=== PATIENT | female | born 1950 | race Caucasian/White ===

== ENCOUNTER 2016-06-29 00:26 | Inpatient (IN) | payer OTHER ==
[~2016-06-29] VITALS: Ht 154.9 cm; Wt 61.1 kg
[2016-06-29] VITALS (15 sets, daily range): BP systolic 105–119; BP diastolic 62–70; PULSE 70–110; TEMP 36.6–37.4; O2SAT 91–97; Ht 154.9 cm; Wt 61.1 kg
[~2016-06-29 00:26] MED LIST: ADVIN25050 INH; ALBU1AER9 INH; ALBU1NEB10 INH; CALC-51 PO; FERR325T51 PO; LEVO100T7 PO; LISI5TAB3 PO; PRED10TA PO; PRLSR20 PO; SERT-234 PO; SIMV20TA2 PO; SNG10 PO; SUMA100T16 PO; THEO1TAB14 PO; TIOTCAP INH; ZOLP5TAB6 PO
[2016-06-29] MEDS ORDERED: METHYLPREDNISOLONE 125 MG VIAL IV STA (00:33)
[2016-06-29] MEDS ORDERED: ALBUT/IPRATROP 3MG/0.5MG NEB 3 ML VIAL INH ONE (00:45)
--- NOTE | 2016-06-29 00:45 | EMERGENCY ROOM VISIT NOTE ---
History Report prepared by Juanita: Kira Sandoval Under the Supervision of: Dr. Erum Angeles D.O. First contact with patient: 00:27 Chief Complaint: RESPIRATORY PROBLEMS Stated Complaint: BREATHING DIFFICULTY History of Present Illness The patient is a 65 year old female who presents to the Emergency Room with complaints of worsening SOB starting 1 day [employer]. According to nursing staff the patient woke up yesterday with general weakness and SOB which worsened throughout the day after attempts of using breathing treatments at home. The patient then called from EMS. The patient states that the breathing treatments in the ambulance have helped her symptoms. The nursing staff state that the patient has COPD, asthma and is a daily smoker. Source of History: patient, nursing staff Onset: 1 day COTTON [employer]ER Position: chest Timing: worsening Modifying Factors (Relieving): other (breathing treatment in ambulance) Associated Symptoms: + weakness Review of Systems See HPI for pertinent positives & negatives. A total of 10 systems reviewed and were otherwise negative. Past Medical & Surgical Medical Problems: (1) Degenerative disc disease, lumbar (2) HTN (hypertension) (3) Respiratory failure, acute (4) Right leg pain Surgical Problems: (1) Gastric bypass status for obesity Family History Diabetes mellitus Heart disease Hypertension Social History Smoking Status: Current Every Day Smoker Alcohol Use: none Drug Use: none Marital Status: single Occupation Status: employed Current/Historical Medications Scheduled Albuterol (Proair Hfa), 2 PUFFS INH QID PRN Albuterol Soln (Ventolin Soln), 1 AMP INH Q4HR PRN Calcium Citrate-Vitamin D (Calcium Citrate + D3 200-250 mg-Unit), 1 TAB PO BID Cholecalciferol (Vitamin D3), 1,000 UNITS PO DAILY Ferrous Sulfate (Iron Supplement), 325 MG PO BID Fluticasone Prop/Salmeterol (Advair Diskus 250/50 Mcg *), 1 PUFF INH BID Levofloxacin (Levaquin), 500 MG PO DAILY/UD/PRN Levothyroxine Sodium (Levothyroxine Sodium), 125 MCG PO DAILY Lisinopril (Zestril), 5 MG PO QAM Montelukast (Singulair *), 10 MG PO HS Multivitamin (Multivitamin), 1 TAB PO DAILY Omeprazole (Prilosec), 20 MG PO BIDM Sertraline (Zoloft), 150 MG PO QAM Simvastatin (Zocor), 20 MG PO QPM Theophylline Ext Rel (Adarsh-Dur Ext Rel), 300 MG PO BID Umeclidinium Roberta (Incruse Ellipta), 1 PUFF INH DAILY Scheduled PRN Cyclobenzaprine Hcl (Flexeril), 5 MG PO TID PRN for SPASMS Polyethylene Glycol 3350 (Miralax), 17 GM PO DAILY PRN for Constipation Tramadol (Ultram), 50 MG PO Q6H PRN for Pain Zolpidem Tartrate (Zolpidem Tartrate), 10 MG PO HS PRN for Sleep Allergies Coded Allergies: Cephalexin (Verified Allergy, Intermediate, ITCHY, 02/26/16) Physical Exam Vital Signs Date Time Temp Pulse Resp B/P Pulse Ox O2 Delivery O2 Flow Rate FiO2 06/29/16 03:00 112 19 105/63 92 Nasal Cannula 4.0 06/29/16 01:53 37.6 06/29/16 01:51 137 91 Room Air 06/29/16 01:28 117/64 06/29/16 01:26 131 19 94 Nebulizer 06/29/16 01:18 101/55 06/29/16 00:56 115 18 96 Nebulizer 06/29/16 00:49 Mask 8.0 06/29/16 00:49 36.6 110 22 124/74 97 Mask 8.0 06/29/16 00:49 Mask 8.0 06/29/16 00:37 116 06/29/16 00:31 124/74 Physical Exam HEENT: Head - normocephalic and atraumatic Pupils are equal, round, and reactive to light. Extraocular eye muscles are intact, and sclera are anicteric. Nose - moist nasal mucosa without discharge. Mouth - moist buccal mucosa. Oropharynx is nonerythematous and there is no tonsillar exudate or edema noted. Neck: Supple; no JVD, nuchal rigidity, cervical lymphadenopathy. Heart: Tachycardic rate and regular rhythm. There is a normal S1 and S2 with no murmurs, clicks, or gallops appreciated. Lungs: Inspiratory and expiratory wheezing with rhonchi at both bases. Abdomen: Soft, completely nontender, nondistended, with good bowel sounds. There are no palpable pulsatile masses or hepatosplenomegaly. There is no guarding, rigidity, or rebound noted. Extremities: No evidence of cyanosis, clubbing, or edema. There are easily palpable peripheral pulses. Skin: Hot and dry with good turgor and no rashes. Medical Decision & Procedures ER Provider Diagnostic Interpretation: X-ray results as stated below per interpretation by me: CHEST X-RAY: Right middle lobe pneumonia. Cardiomegaly. Laboratory Results 06/29/16 00:40 Red Blood Count 4.26, Mean Corpuscular Volume 81.5, Mean Corpuscular Hemoglobin 25.4, Mean Corpuscular Hemoglobin Concent 31.1, Mean Platelet Volume 10.1, Neutrophils (%) (Auto) 80.6, Lymphocytes (%) (Auto) 11.1, Monocytes (%) (Auto) 7.9, Eosinophils (%) (Auto) 0.0, Basophils (%) (Auto) 0.1, Neutrophils # (Auto) 9.59, Lymphocytes # (Auto) 1.32, Monocytes # (Auto) 0.94, Eosinophils # (Auto) 0.00, Basophils # (Auto) 0.01 06/29/16 00:40 Test 06/29/16 00:40 06/29/16 00:42 06/29/16 01:00 06/29/16 02:32 White Blood Count 11.90 K/uL (4.8-10.8) Red Blood Count 4.26 M/uL (4.2-5.4) Hemoglobin 10.8 g/dL (12.0-16.0) Hematocrit 34.7 % (37-47) Mean Corpuscular Volume 81.5 fL (80-100) Mean Corpuscular Hemoglobin 25.4 pg (25-34) Mean Corpuscular Hemoglobin Concent 31.1 g/dl (32-36) Platelet Count 180 K/uL (130-400) Mean Platelet Volume 10.1 fL (7.4-10.4) Neutrophils (%) (Auto) 80.6 % Lymphocytes (%) (Auto) 11.1 % Monocytes (%) (Auto) 7.9 % Eosinophils (%) (Auto) 0.0 % Basophils (%) (Auto) 0.1 % Neutrophils # (Auto) 9.59 K/uL (1.4-6.5) Lymphocytes # (Auto) 1.32 K/uL (1.2-3.4) Monocytes # (Auto) 0.94 K/uL (0.11-0.59) Eosinophils # (Auto) 0.00 K/uL (0-0.5) Basophils # (Auto) 0.01 K/uL (0-0.2) RDW Standard Deviation 52.9 fL (36.4-46.3) RDW Coefficient of Variation 17.7 % (11.5-14.5) Immature Granulocyte % (Auto) 0.3 % Immature Granulocyte # (Auto) 0.04 K/uL (0.00-0.02) Prothrombin Time 9.9 SECONDS (9.0-12.0) Prothromb Time International Ratio 0.9 (0.9-1.1) Activated Partial Thromboplast Time 30.7 SECONDS (21.0-31.0) Partial Thromboplastin Ratio 1.2 Anion Gap 11.0 mmol/L (3-11) Est Creatinine Clear Calc Drug Dose 76.1 ml/min Estimated GFR () 108.7 Estimated GFR (Non- 93.8 BUN/Creatinine Ratio 11.6 (10-20) Calcium Level 8.4 mg/dl (8.5-10.1) Magnesium Level 1.9 mg/dl (1.8-2.4) Total Bilirubin 0.2 mg/dl (0.2-1) Aspartate Amino Transf (AST/SGOT) 17 U/L (15-37) Alanine Aminotransferase (ALT/SGPT) 13 U/L (12-78) Alkaline Phosphatase 75 U/L (45-117) Total Protein 7.1 gm/dl (6.4-8.2) Albumin 3.3 gm/dl (3.4-5.0) Globulin 3.8 gm/dl (2.5-4.0) Albumin/Globulin Ratio 0.9 (0.9-2) Chemistry Specimen Hemolysis Theophylline Level 10 mcg/ml (10-20) Bedside Lactic Acid Venous 1.85 mmol/L (0.90-1.70) Influenza Type A Antigen Neg for Influ A (NEG) Influenza Type B Antigen Neg for Influ B (NEG) Arterial Blood pH 7.49 (7.35-7.45) Arterial Blood Partial Pressure CO2 33 mmHg (35-46) Arterial Blood Partial Pressure O2 72 mm/Hg (80-95) Arterial Blood HCO3 24 mmol/L (19-24) Arterial Blood Oxygen Saturation 93.8 % (90-95) Arterial Blood Base Excess 1.2 mEq/L (-9-1.8) Arterial Blood Gas Delivery 4L Mateus Test POS (POS) Lactic Acid Level 1.4 mmol/L (0.4-2.0) Laboratory results per my review. Medications Administered Medications (Trade) Dose Ordered Sig/Kaycee Route Start Time Stop Time Status Last Admin Dose Admin Methylprednisolone Sodium Succinate (Solu-Medrol IV) 125 mg NOW STAT IV 06/29/16 00:33 06/29/16 00:36 DC 06/29/16 00:33 125 MG Albuterol/ Ipratropium (Duoneb) 12 ml ONE ONCE INH 06/29/16 00:45 06/29/16 00:46 DC 06/29/16 00:46 12 ML Piperacillin Sod/ Tazobactam Sod (Zosyn Iv) 4.5 gm NOW STAT IV 06/29/16 01:48 06/29/16 01:50 DC 06/29/16 01:48 4.5 GM Levofloxacin 750 mg 750 mg NOW ONCE IV 06/29/16 02:00 06/29/16 02:01 DC 06/29/16 02:00 750 MG Lactated Ringer's (Lr 1000ml) 1,000 ml @ 500 mls/hr Q2H ONCE IV 06/29/16 02:15 06/29/16 04:14 DC 06/29/16 04:04 500 MLS/HR Procedure Medications Administered: Methylprednisolone Sodium succinate Albuterol/Ipratropium Piperacillin Sod/Tazobactam Sod Levofloxacin ECG Indication: SOB/dyspnea Rate (beats per minute): 115 Rhythm: sinus tachycardia Findings: PAC, no acute ischemic change, no ectopy ED Course 0027: Past medical records reviewed. The patient was evaluated in room A2. A complete history and physical exam was performed. A twelve-lead EKG was obtained. Laboratory studies were drawn as above. 0033: Ordered Solu-Medrol IV 125 mg IV. The patient had chest x-ray as described above. 0045: Ordered Duoneb 12 ml INH. 0148: Ordered Zosyn IV 4.5 gm IV. 0151: I reevaluated the patient and she was on 4 L of O2 by nasal canula and feeling better. 0200: Ordered Levofloxacin 750 mg IV. 0210: I discussed the case with Dr. Micheal Martin. He agreed to evaluate the patient for further management and care. Medical Decision The patient is a 65 year old female who presents to the ED with SOB. Differential diagnosis includes pneumonia, COPD exacerbation, cardiac ischemia, bronchitis, and sepsis. Labs: White count 11.9 hemoglobin 10.8 Hematocrit 29.8 Platelet count 180 Normal renal function Glucose 113 Lactic Acid 1.8 LFTs are normal Influenza negative. This is a 65-year-old female who had progressively worsening shortness of breath throughout the day. The patient has been using breathing treatments at home without any relief. She seems to be having an exacerbation of her asthma. Chest x-ray shows evidence of a large right middle lobe pneumonia. A septic workup was performed. The patient was started on IV antibiotics. She is feeling better at this time. Consults Time Called: 0150 Consulting Physician: Dr. Micheal Martin. Returned Call: 0210 I discussed the case with Dr. Micheal Martin. He agreed to evaluate the patient for further management and care. Impression Primary Impression: Right middle lobe pneumonia Additional Impression: COPD exacerbation Scribe Attestation The scribe's documentation has been prepared under my direction and personally reviewed by me in its entirety. I confirm that the note above accurately reflects all work, treatment, procedures, and medical decision making performed by me. Departure Information Dispostion Being Evaluated By Hospitalist Destin Diaz M.D. (PCP)
[2016-06-29 01:05] LABS: BASO % 0.1 %; BASO ABS # 0.01 K/uL (0-0.2); COMPLETE YES; HEMATOCRIT 34.7 % (37-47); IG% 0.3 %; LYMPH % 11.1 %; LYMPH ABS # 1.32 K/uL (1.2-3.4); MEAN CELL VOLUME 81.5 fL (80-100); MEAN CORPUSCULAR HEMOGLOBIN 25.4 pg (25-34); MEAN CORPUSCULAR HGB CONC 31.1 g/dl (32-36); MEAN PLATELET VOLUME 10.1 fL (7.4-10.4); MONO % 7.9 %; NEUT % 80.6 %; PLATELET COUNT 180 K/uL (130-400); RED BLOOD COUNT 4.26 M/uL (4.2-5.4)
[2016-06-29 01:16] LABS: INR 0.9 (0.9-1.1); PARTIAL THROMBOPLASTIN RATIO 1.2; PROTHROMBIN TIME (PATIENT) 9.9 SECONDS (9.0-12.0)
[2016-06-29 01:32] LABS: ALB/GLOB RATIO 0.9 (0.9-2); BUN/CREATININE RATIO 11.6 (10-20); CALCIUM 8.4 mg/dl (8.5-10.1); CREATININE 0.65 mg/dl (0.60-1.20); POTASSIUM 3.8 mmol/L (3.5-5.1)
[2016-06-29] MEDS ORDERED: PIPERACILLIN/TAZOBACTAM 4.5 GM/100ML D5W IV STA (01:48)
[2016-06-29] MEDS ORDERED: LEVAQUIN 750MG / 150ML D5W IV ONE (02:00)
[2016-06-29] MEDS ORDERED: UMEC1INH INH (02:01)
[2016-06-29] MEDS ORDERED: LEVO125T4 PO (02:09)
[2016-06-29] MEDS ORDERED: CYCL5TAB PO (02:11)
[2016-06-29] MEDS ORDERED: TRAM-10 PO (02:14)
[2016-06-29] MEDS ORDERED: ACETAMINOPHEN 325 MG TAB PO PRN (02:15)
[2016-06-29] MEDS ORDERED: LACTATED RINGER'S 1000ML 1,000 ML IV ONE (02:15)
[2016-06-29] MEDS ORDERED: VANCOMYCIN INJ 0 MG in SODIUM CHLORIDE 0.9% 250ML 250 ML IV STA (02:18)
[2016-06-29] MEDS ORDERED: LEVO1TAB33 PO (02:19)
[2016-06-29] MEDS ORDERED: CHOL1000 PO (02:22)
[2016-06-29] MEDS ORDERED: MULT-506 PO (02:23)
[2016-06-29] MEDS ORDERED: POLY335019 PO (02:24)
[2016-06-29] MEDS ORDERED: CALC-494 PO (02:27)
[2016-06-29 02:47] LABS: ALLEN TEST POS (POS); ARTERIAL BLD GAS O2 SATURATION 93.8 % (90-95); ARTERIAL BLOOD GAS BASE EXCESS 1.2 mEq/L (-9-1.8); ARTERIAL BLOOD GAS HCO3 24 mmol/L (19-24); ARTERIAL BLOOD GAS PO2 72 mm/Hg (80-95); ARTERIAL BLOOD GAS pH 7.49 (7.35-7.45); O2 ADMINISTRATION 4L
[2016-06-29 02:48] LABS: MAGNESIUM 1.9 mg/dl (1.8-2.4)
[2016-06-29] MEDS ORDERED: GUAIFENESIN 600 MG TABCR PO ONE (03:29)
[2016-06-29] MEDS ORDERED: LEVALBUTEROL/IPRATROPIUM NEB INH STA (03:29)
[2016-06-29] MEDS ORDERED: POTASSIUM CHLORIDE 10 MEQ TABCR PO STA (03:29)
[2016-06-29] MEDS ORDERED: POLYETHYLENE (MIRALAX) 17 GM PACK PO PRN (03:30)
[2016-06-29] MEDS ORDERED: NITROGLYCERIN 0.4 MG SL PER TAB CHARGE SL PRN (03:30)
[2016-06-29] MEDS ORDERED: ONDANSETRON INJ 2 MG/ML 2 ML VIAL IV PRN (03:30)
[2016-06-29] MEDS ORDERED: LEVALBUTEROL/IPRATROPIUM NEB INH PRN (03:30)
[2016-06-29] MEDS ORDERED: HYDROmorphone INJ 1 MG/ML SYR IV PRN (03:30)
[2016-06-29] MEDS ORDERED: ACETAMINOPHEN 325 MG TAB PO STA (03:38)
[2016-06-29] MEDS ORDERED: IPRATROPIUM BROMIDE NEB SOLN 0.02% 2.5 ML VIAL INH STA (03:40)
[2016-06-29] MEDS ORDERED: LEVALBUTEROL 1.25MG/0.5ML NEB INH STA (03:40)
[2016-06-29] MEDS ORDERED: LEVALBUTEROL 1.25MG/0.5ML NEB INH PRN (03:45)
[2016-06-29] MEDS ORDERED: IPRATROPIUM BROMIDE NEB SOLN 0.02% 2.5 ML VIAL INH PRN (03:45)
[2016-06-29] MEDS ORDERED: MAGNESIUM SULFATE 1GM / D5W 1 GM in PREMIXED IN D5W 100 ML IV STA (04:09)
[2016-06-29] MEDS ORDERED: VANCOMYCIN CONSULT ACTIVE PRN (04:30)
[2016-06-29] MEDS ORDERED: VANCOMYCIN INJ 1,650 MG in SODIUM CHLORIDE 0.9% 500ML 500 ML IV SCH (05:00)
--- NOTE | 2016-06-29 05:48 | HISTORY & PHYSICAL EXAMINATION ---
DATE OF ADMISSION: 06/29/2016 PRIMARY CARE PHYSICIAN: Dr. Villasenor. CHIEF COMPLAINT: Cough, shortness of breath. History obtained from patient and records. HISTORY OF PRESENT ILLNESS: Medical history is significant for chronic respiratory failure secondary to COPD , ongoing tobacco abuse, sleep apnea as per records, history of gastric bypass, pulmonary nodules, hypertension, hyperlipidemia, hypothyroidism, history of MRSA as per records. chronic anemia (baseline hemoglobin of 10). Recent confinement June 2012 for COPD exacerbation. One-day history of productive cough symptoms, unable to expectorate, admits to some sick contacts. Denies aspiration. No cp. Patient had a fever as well. At the Emergency Room, the patient received Levaquin, Zosyn, Solu-Medrol for sepsis and COPD exacerbation. MEDICAL HISTORY: As above. Pneumococcal vaccine in 2005. SURGERIES: Gastric bypass, hernia surgery, tubal ligation, ovarian cyst removal. HOME MEDICATIONS: Include Imitrex, Spiriva, zolpidem, Zestril, Singulair, Prilosec, prednisone rescue kit, Zoloft, Zocor, Ventolin, ProAir, calcium, ferrous sulfate, Advair Diskus, levothyroxine. ALLERGIES: KEFLEX. FAMILY HISTORY: Diabetes, high blood pressure. PERSONAL AND SOCIAL HISTORY: Down to one-fourth pack daily. No chronic alcoholic beverage intake. On disability. REVIEW OF SYSTEMS: As per HPI, all other ROS negative. PHYSICAL EXAMINATION: VITAL SIGNS: Blood pressure was noted to be 134/74, pulse rate 110, RR 22, temperature 37.6, sats 97% on mask GEB : respiratory distress, slightly anxious, chronically ill. Looks older for stated age. SKIN : pallor HEENT: Pale palpebral conjunctivae. Dry mucosa. NECK: No JVD. supple CHEST: Expiratory wheezes, more on the right. HEART: Tachycardic. ABDOMEN: Soft. NT EXTREMITIES: No edema, no tenderness. NEUROLOGIC: No gross focality. DATA: Hemoglobin 10.8, hematocrit 4.7, white cell count 11, platelets 118. Sodium 141, potassium 3.8, chloride 103, CO2 of 27, BUN 8, creatinine 0.6, glucose 113. Lactic acid was noted to be 1.8, later 1.4. trop 0 Chest x-ray infiltrate on the right. EKG rate 115, sinus tachycardia, LAD, LAFB, PACs, low voltage ASSESSMENT: 1. Acute on chronic hypoxemic respiratory failure secondary to chronic obstructive pulmonary disease exacerbation secondary to community-acquired pneumonia hx MRSA as per records 2. severe sepsis SIRS plus hypoxemia secondary to above. 3. Hypertension, stable. 4. Ongoing tobacco abuse 5. chronic anemia likely secondary to impaired iron absorption after gastric bypass. PLAN: PCU. Continue supplemental O2 baseline ABG. Cultures, Levaquin, Vancomycin IVF nebs steroids, RTC Pulmonary consult RE respiratory failure, COPD exacerbation Nicotine patch. DVT prophylaxis, Lovenox subQ. Full code. MTDD
[2016-06-29] MEDS: LEVOTHYROXINE 125 MCG TAB PO SCH (06:12)
[2016-06-29] MEDS: IPRATROPIUM BROMIDE NEB SOLN 0.02% 2.5 ML VIAL INH SCH ×3 (07:37→20:23)
[2016-06-29] MEDS: LEVALBUTEROL 1.25MG/0.5ML NEB INH SCH ×3 (07:37→20:23)
--- NOTE | 2016-06-29 07:37 | DIAGNOSTIC IMAGING REPORT ---
CHEST 2 VIEWS ROUTINE HISTORY: Short of breath. COMPARISON: Chest 05/04/2015. FINDINGS: The heart is mildly enlarged. Patchy density within the right lower lobe. The left lung is essentially clear. Blunting of the right lateral costophrenic sulcus. Mild wedge-shaped compression deformity at L1. The heart is normal in size. No evidence for pulmonary edema. IMPRESSION: 1. Patchy density within the right lower lobe. This may represent atelectasis or pneumonia. Recommend one month chest x-ray follow-up to ensure resolution. 2. Stable mild cardiomegaly. Electronically signed by: Rock Najera M.D. 06/29/2016 7:35 AM
[2016-06-29] MEDS: MULTIVITAMIN TAB PO SCH (08:54)
[2016-06-29] MEDS: PANTOprazole SOD 40 MG TAB PO SCH ×2 (08:55→15:45)
[2016-06-29] MEDS: THEOPHYLLINE 300MG EXTENDED REL TAB PO SCH ×2 (08:55→20:30)
[2016-06-29] MEDS: METHYLPREDNISOLONE IV 40 MG in SYRINGE 0 ML IV SCH ×3 (08:55→23:43)
[2016-06-29] MEDS: LISINOPRIL 5 MG TAB PO SCH (08:55)
[2016-06-29] MEDS: FERROUS SULFATE 325 MG TAB PO SCH ×2 (08:55→20:30)
--- NOTE | 2016-06-29 08:55 | PULMONARY CONSULTATION ---
DATE OF CONSULTATION: 06/29/2016 TIME: 07:25 a.m. REPORT OF CONSULTATION: The patient was seen in room 286, bed 2. Her primary physician is Dr. Villasenor. She is a 65-year-old female who has a history of COPD. She became acutely ill on June 28. She developed a significant increase in her cough. She has been producing a small amount of yellow to mcdowell mucus. There has been no hemoptysis. The cough became more severe as the day went on. In addition, she became more short of breath than normal. She had some wheezing. She did not notice any chest pains. She had chills and she felt hot. The highest temperature since admission is 37.6. She has had some sweats. The patient is on numerous medications at home for breathing including nebulizer with Ventolin. However, she has not used the nebulizer for quite some time. She does not have the tubing and mouthpiece for the nebulizer. She states her daughter has borrowed it and she does not have one to use herself. Thus, she was unable to give herself any treatments at home yesterday when having distress. Other medicines she routinely takes for breathing include Incruse Ellipta, Advair 250/50 one puff b.i.d., theophylline 300 mg b.i.d., and Singulair 10 mg daily. The patient has a significant history of COPD. She was hospitalized with bilateral pneumonia in 2008. In 2012, she had an exacerbation of COPD. She was hospitalized at that time for approximately a week. She did have bronchoscopy at that time done by Dr. Rocha for removal of secretions. She was found to have a lung nodule in the right lower lobe in 2012. She had 2 CAT scans done through [facility] in the early part of 2012. She tells me that she has had this followed up through her [facility] doctors and the nodule did not change. She reportedly does have periodic pulmonary function test done. She could not give me any clear data, however, on exactly when her pulmonary functions were done or their results and she really does not know when her CAT scans were done previously. As noted, the patient was not the best historian, however. The patient has been a long-term smoker. She started smoking in her 20s and has smoked for about 40 years. Most of the time, she smoked a pack per day or more. She states she is down to about a quarter pack per day. Apparently, this decrease in her cigarettes began the last couple of months. She states that Dr. Villasenor told her she has lost about 20 pounds in the last 2 years or so. She states her appetite is not that great. She previously had been obese. She had a gastric bypass surgery done about 2005 and then had to have a second procedure done sometime thereafter. She did have sleep apnea prior to her bypass, but she no longer needs CPAP she states since she lost all the weight. PAST SURGICAL HISTORY: 1. Gastric bypass surgery x2. 2. Hernia repair. 3. Tubal ligation. 4. Ovarian cystectomy. PAST MEDICAL HISTORY: 1. Hypertension. 2. Hyperlipidemia. 3. Hypothyroidism. 4. Anemia. 5. DJD of the lumbar spine. 6. Insomnia. 7. Anxiety. 8. COPD as noted. 9. Prior obstructive sleep apnea as noted. 10. Lung nodule by history as noted. 11. Childbirth x1. SOCIAL HISTORY: As noted above. FAMILY HISTORY: Father is living at age 90 in good health according to the patient. He lives with her. Mother is and has diabetes, Parkinson's disease, and Alzheimer disease. ALLERGIES: LISTED ALLERGIES TO KEFLIN. SHE STATES SHE DEVELOPED ITCHING WITH THIS DRUG. REVIEW OF SYSTEMS: GENERAL: The patient's energy level is lower than she would like. She does get out of the house to do her grocery shopping. She does drive she states. NEUROLOGIC: Denies syncope or near syncope. OPHTHALMIC: No visual complaints. ENT: Denies nasal congestion or coryza. CARDIAC: No chest pain or palpitations. PULMONARY: As noted above. GASTROINTESTINAL: The patient states she has some nausea, which was prominent yesterday. There was no vomiting. She admits to occasionally she will feel like her stomach regurgitates a bit. She denies any bowel issues. GENITOURINARY: Denies complaints. MUSCULOSKELETAL: No acute complaints of myalgias or arthralgias. DERMATOLOGIC: Denies rash or edema. ENDOCRINE: No lymphadenopathy. PHYSICAL EXAMINATION: VITAL SIGNS: The patient is a 65-year-old female who appeared acutely ill. She was cooperative, alert and oriented. She was coughing periodically during the exam. EYES: Pupils were reactive. MOUTH: Unremarkable. NECK: Palpation of the neck reveals no lymph nodes or masses. CHEST: Normal expansion and development. She appears to have a scar in the area of the left breast. She told me she had had a lump removed from her right breast, but clearly was what appeared to be a scar on the left breast. HEART: Cardiac rate has been elevated. At that time for admission, the heart rate was up to 137. Currently, the heart rate is down to 100. LUNGS: Respiratory rate peaked at 26 breaths per minute since admission. Current respiratory rate is 20 breaths per minute. Oxygen saturation is 92% on 4 liter nasal cannula. Auscultation of the chest reveals rhonchi in the anterior right chest. Posteriorly, there are rhonchi bilaterally, but greater on the right than the left. ABDOMEN: Inspection of the abdomen revealed scars from prior surgeries. She has an abdomen that appears to have lost a lot of weight over a period of time. She has a hernia in the left side of her abdomen, which is more pronounced when she coughs. She states her doctors are aware of this. Bowel sounds were present. There was no tenderness to palpation, masses or organomegaly. EXTREMITIES: Showed no cyanosis, clubbing or edema. LABORATORY DATA: Chest x-ray done in the Emergency Room shows what appears to be a right middle lobe infiltrate. This is most likely pneumonia. It is notable that she had had a CAT scan done in 2012 that showed some right middle lobe atelectasis and right lower lobe atelectasis at that time. Thus, it makes this area more difficult to evaluate. However, this was a distinct change compared with a prior x-ray done on 05/04/2015. The current infiltrate may also involve the right lower lobe as well as middle lobe. CBC shows a white count of 11.9, hemoglobin 10.8, and platelets 180,000. Differential showed 80.6 neutrophils, 11.1 lymphs, 7.9 monocytes, and 0.1 basophil. Coags were normal. Arterial blood gas showed a pH of 7.49 with a pCO2 of 33 and a pO2 of 72 done on 4 liter nasal cannula. Electrolytes showed sodium 141, potassium 3.8, chloride 103, and bicarbonate 27. BUN was 8 with a creatinine of 0.65. Blood sugar was 113. Magnesium 1.9. Liver functions were normal. Theophylline level was 10. Flu test was negative. The patient has had blood cultures drawn and sputum culture obtained. IMPRESSIONS: 1. Right middle lobe and right lower lobe infiltrates most compatible with pneumonia. 2. Chronic obstructive pulmonary disease with exacerbation secondary to #1. 3. Nicotine addiction. 4. History of a nodule in the right lower lobe. COMMENTS: The patient appears to have an acute illness, which would be compatible with pneumonia. She has, however, had atelectasis in the past. The chest x-ray should be followed until clear. She currently is on levofloxacin for the pneumonia. This choice is likely related to her listed ALLERGY TO KEFLEX. There was a report she had received Zosyn in the ER. She did not have any apparent side effects related to that. Part of the problem for the patient is at home she does not have tubing or a mouthpiece for her nebulizer and that needs to be obtained for her when she goes home. She is on her other basic medicines. Her nebulizer treatments are levalbuterol 1.25 q. 6 hours and ipratropium q. 6 hours. When she is discharged, she can simply go back on her Incruse Ellipta. She is on theophylline b.i.d. Her theophylline level was acceptable. Apparently, she has been on this medicine for quite some time. She is on methylprednisolone 40 mg IV q. 8 hours. It appears she has also ordered vancomycin. This could be because of a history of MRSA, which apparently affected her right axilla. The timing of this was unknown. Perhaps, incentive spirometry and a flutter valve would help her with secretion clearance. We will follow this patient with you. Thank you for asking me to assist in her care.
[2016-06-29] MEDS: ENOXAPARIN 40 MG/0.4 ML SYR SC SCH (08:56)
[2016-06-29] MEDS: SERTRALINE HCL 100 MG TAB PO SCH (08:56)
[2016-06-29] MEDS ORDERED: LEVALBUTEROL/IPRATROPIUM NEB INH SCH (09:00)
[2016-06-29] MEDS: NICOTINE 7 MG/24 HR TDSY TD SCH (09:48)
--- NOTE | 2016-06-29 10:29 | Pharmacy Progress Note ---
Pharmacy Antibiotic Consult Date of Service: Jun 29, 2016. Pharmacy Dosing Scope Pharmacy is consulted to initiate VANCOMYCIN / LEVAQUIN IV dosing therapy, order appropriate labs and adjust drug dose/frequency. Subjective The patient is a 65 year old female admitted on Jun 29, 2016 at 03:08. Objective Height (Feet): 5 Height (Inches): 1.00 Weight (Kilograms): 61.100 Lab Results (24hrs): Laboratory Tests Test 06/29/16 00:40 BUN/Creatinine Ratio 11.6 Blood Urea Nitrogen 8 mg/dl Creatinine 0.65 mg/dl White Blood Count 11.90 K/uL Red Blood Count 4.26 M/uL Hemoglobin 10.8 g/dL Hematocrit 34.7 % Mean Corpuscular Volume 81.5 fL Mean Corpuscular Hemoglobin 25.4 pg Mean Corpuscular Hemoglobin Concent 31.1 g/dl Platelet Count 180 K/uL Mean Platelet Volume 10.1 fL Neutrophils (%) (Auto) 80.6 % Lymphocytes (%) (Auto) 11.1 % Monocytes (%) (Auto) 7.9 % Eosinophils (%) (Auto) 0.0 % Basophils (%) (Auto) 0.1 % Neutrophils # (Auto) 9.59 K/uL Lymphocytes # (Auto) 1.32 K/uL Monocytes # (Auto) 0.94 K/uL Eosinophils # (Auto) 0.00 K/uL Basophils # (Auto) 0.01 K/uL Micro Results: * 06/29/16 -- Blood Cx x 2 -- pending * 06/29/16 -- Sputum Cx -- pending Assessment & Plan 65yo female admitted with sepsis, likely secondary respiratory source. Renal function is good (SCr 0.65, CrCl ~76 ml/min). VANCOMYCIN: * Loading dose: VANCOMYCIN 1650mg (~25mg/kg) IV X 1 dose then VANCOMYCIN 900mg (~15mg/kg) IV every 12 hours. * Estimated Pk parameters: Vd ~0.7L/kg Ke ~0.067 t1/2 ~10 hours * Goal trough level estimate: between 15 - 20 mcg/mL. * Trough level has been ordered for: @ 0600. Pharmacy will continue to follow and will adjust dose/frequency as necessary. Thank you
[2016-06-29] MEDS: VANCOMYCIN INJ 900 MG in SODIUM CHLORIDE 0.9% 250ML 250 ML IV SCH (17:07)
[2016-06-29] MEDS: MONTELUKAST SOD 10 MG TAB PO SCH (20:29)
[2016-06-29] MEDS: GUAIFENESIN 600 MG TABCR PO SCH (20:29)
[2016-06-29] MEDS: SIMVASTATIN 20 MG TAB PO SCH (20:30)
[2016-06-29] MEDS: LEVOFLOXACIN 500 MG TAB PO SCH (20:32)
[2016-06-30] VITALS (7 sets, daily range): BP systolic 102–130; BP diastolic 66–75; PULSE 67–97; TEMP 36.8–36.9; O2SAT 86–94
[2016-06-30] MEDS: LEVALBUTEROL 1.25MG/0.5ML NEB INH SCH ×4 (02:01→19:45)
[2016-06-30] MEDS: IPRATROPIUM BROMIDE NEB SOLN 0.02% 2.5 ML VIAL INH SCH ×4 (02:01→19:45)
[2016-06-30] MEDS: VANCOMYCIN INJ 900 MG in SODIUM CHLORIDE 0.9% 250ML 250 ML IV SCH ×2 (05:40→15:55)
[2016-06-30] MEDS: LEVOTHYROXINE 125 MCG TAB PO SCH (05:41)
[2016-06-30 07:31] LABS: BASO % 0.1 %; BASO ABS # 0.01 K/uL (0-0.2); COMPLETE YES; IG% 0.2 %; LYMPH % 5.9 %; LYMPH ABS # 0.87 K/uL (1.2-3.4); MEAN CELL VOLUME 79.6 fL (80-100); MEAN CORPUSCULAR HEMOGLOBIN 24.9 pg (25-34); MEAN CORPUSCULAR HGB CONC 31.3 g/dl (32-36); MEAN PLATELET VOLUME 9.7 fL (7.4-10.4); MONO % 4.4 %; NEUT % 89.4 %; PLATELET COUNT 180 K/uL (130-400); RED BLOOD COUNT 3.77 M/uL (4.2-5.4); WHITE BLOOD COUNT 14.67 K/uL (4.8-10.8)
[2016-06-30 07:57] LABS: CALCIUM 8.6 mg/dl (8.5-10.1); CREATININE 0.38 mg/dl (0.60-1.20); POTASSIUM 4.3 mmol/L (3.5-5.1)
[2016-06-30] MEDS: MULTIVITAMIN TAB PO SCH (08:46)
[2016-06-30] MEDS: FERROUS SULFATE 325 MG TAB PO SCH ×2 (08:47→21:15)
[2016-06-30] MEDS: NICOTINE 7 MG/24 HR TDSY TD SCH (08:47)
[2016-06-30] MEDS: THEOPHYLLINE 300MG EXTENDED REL TAB PO SCH ×2 (08:47→21:15)
[2016-06-30] MEDS: LISINOPRIL 5 MG TAB PO SCH (08:48)
[2016-06-30] MEDS: GUAIFENESIN 600 MG TABCR PO SCH ×2 (08:48→21:15)
[2016-06-30] MEDS: SERTRALINE HCL 100 MG TAB PO SCH (08:48)
[2016-06-30] MEDS: ENOXAPARIN 40 MG/0.4 ML SYR SC SCH (08:50)
[2016-06-30] MEDS ORDERED: LEVOFLOXACIN CONSULT ACTIVE PRN (09:00)
[2016-06-30] MEDS: PANTOprazole SOD 40 MG TAB PO SCH ×2 (09:38→17:58)
--- NOTE | 2016-06-30 12:59 | Hospitalist Progress Note ---
Hospitalist Progress Note Date of Service Jun 30, 2016. Subjective Pt evaluation today including: conversation w/ patient, physical exam, chart review, lab review, review of studies, review of inpatient medication list Patient states that her SOB and cough is improving. Denies any chest pain, nausea, vomiting, abd pain, fever, chills. Medications Medications (Trade) Dose Ordered Sig/Kaycee Route Start Time Stop Time Status Last Admin Dose Admin Guaifenesin (Mucinex Contr Rel Tab) 600 mg Q12 PO 06/29/16 21:00 07/29/16 20:59 06/30/16 08:48 600 MG Montelukast Sodium (Singulair Tab) 10 mg HS PO 06/29/16 21:00 07/29/16 20:59 06/29/16 20:29 10 MG Simvastatin (Zocor Tab) 20 mg QPM PO 06/29/16 21:00 07/29/16 20:59 06/29/16 20:30 20 MG Levofloxacin (Levaquin Tab) 500 mg DAILY@2200 PO 06/29/16 22:00 07/07/16 22:01 06/29/16 20:32 500 MG Miscellaneous 1 ea 1 ea HS N/A 06/29/16 21:00 07/29/16 20:59 06/29/16 20:29 1 EA Vancomycin HCl/ Sodium Chloride (Vancomycin Inj/ Nss 250ml) 268 ml @ 125 mls/hr Q12H IV 06/29/16 18:00 07/06/16 17:59 06/30/16 05:40 125 MLS/HR Objective Vital Signs Date Time Temp Pulse Resp B/P Pulse Ox O2 Delivery O2 Flow Rate FiO2 06/30/16 07:54 88 16 86 Room Air 06/30/16 07:44 36.8 67 12 130/75 94 Nasal Cannula 2.0 06/30/16 02:01 83 16 92 Nasal Cannula 2.0 06/29/16 23:49 Nasal Cannula 3.0 06/29/16 22:56 36.6 76 18 119/70 91 Nasal Cannula 2.0 06/29/16 22:37 36.9 83 20 94 2.0 06/29/16 20:23 83 20 94 Nasal Cannula 2.0 06/29/16 20:00 Nasal Cannula 3.0 06/29/16 19:00 36.9 76 18 113/68 93 Nasal Cannula 2.0 06/29/16 16:00 92 Nasal Cannula 2.0 06/29/16 15:15 37.0 87 18 107/65 92 Nasal Cannula 2.0 06/29/16 14:13 70 20 96 Nasal Cannula 4.0 06/29/16 12:51 97 Nasal Cannula 3.0 06/29/16 12:25 37.4 83 20 108/64 94 Physical Exam General Appearance: WD/WN, no apparent distress Eyes: normal inspection, PERRL, EOMI, sclerae normal ENT: normal ENT inspection, hearing grossly normal, TMs normal, pharynx normal Neck: supple, no adenopathy, thyroid normal, no JVD, no carotid bruits, trachea midline Respiratory/Chest: chest non-tender, no respiratory distress, no accessory muscle use, + decreased breath sounds, + rhonchi Cardiovascular: regular rate, rhythm, no edema, no JVD, no murmur, + tachycardia Abdomen: normal bowel sounds, non tender, soft, no organomegaly, no pulsatile mass Extremities: normal range of motion, non-tender, normal inspection, no pedal edema, no calf tenderness, normal capillary refill, pelvis stable 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: 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, no motor/sensory deficits, alert, normal mood/affect, oriented x 3 Skin: normal color, warm/dry, no rash Lymphatic: no adenopathy Laboratory Results Last 24 Hours Test 06/30/16 07:05 White Blood Count 14.67 K/uL Red Blood Count 3.77 M/uL Hemoglobin 9.4 g/dL Hematocrit 30.0 % Mean Corpuscular Volume 79.6 fL Mean Corpuscular Hemoglobin 24.9 pg Mean Corpuscular Hemoglobin Concent 31.3 g/dl Platelet Count 180 K/uL Mean Platelet Volume 9.7 fL Neutrophils (%) (Auto) 89.4 % Lymphocytes (%) (Auto) 5.9 % Monocytes (%) (Auto) 4.4 % Eosinophils (%) (Auto) 0.0 % Basophils (%) (Auto) 0.1 % Neutrophils # (Auto) 13.12 K/uL Lymphocytes # (Auto) 0.87 K/uL Monocytes # (Auto) 0.64 K/uL Eosinophils # (Auto) 0.00 K/uL Basophils # (Auto) 0.01 K/uL RDW Standard Deviation 52.1 fL RDW Coefficient of Variation 17.8 % Immature Granulocyte % (Auto) 0.2 % Immature Granulocyte # (Auto) 0.03 K/uL Sodium Level 141 mmol/L Potassium Level 4.3 mmol/L Chloride Level 105 mmol/L Carbon Dioxide Level 28 mmol/L Anion Gap 8.0 mmol/L Blood Urea Nitrogen 8 mg/dl Creatinine 0.38 mg/dl Est Creatinine Clear Calc Drug Dose 125.4 ml/min Estimated GFR () 129.7 Estimated GFR (Non- 111.9 BUN/Creatinine Ratio 20.0 Random Glucose 113 mg/dl Calcium Level 8.6 mg/dl Diagnostic Results CXR: 1. Patchy density within the right lower lobe. This may represent atelectasis or pneumonia. Recommend one month chest x-ray follow-up to ensure resolution. 2. Stable mild cardiomegaly. Assessment and Plan Patient is a 65 Yr F with PMH of COPD, AMIRAH, Tobacco use disorder, Hypothyroidism, Hyperlipidemia, Chronic anemia, H/O Gastric bypass, Pulmonary Nodule, H/O MRSA presented with cough with expectoration, fever, worsening SOB from baseline Acute on Chronic Hypoxic respiratory failure and Sepsis: Secondary to Community acquired pneumonia (Right middle and lower lobe infiltrates) and COPD exacerbation Will decrease methylprednisolone 40 mg IV BID Leukocytosis secondary to glucocorticoids Continue bronchodilators, glucocorticoids, oxygen support Continue Levaquin and Vancomycin Sputum Culture: Staph.aureus, Follow up blood cultures, MRSA-Nasal Flutter valve Appreciate pulmonary input Needs a mouthpiece for her nebulizer at the time of discharge Right lower lobe lung nodule: Diagnosed in 2012 Stable follow up as outpatient Hypothyroidism: Continue Levothyroxine Hyperlipidemia: Continue simvastatin Tobacco use disorder: 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
--- NOTE | 2016-06-30 13:29 | PROGRESS NOTE ---
DATE: 06/30/2016 DATE: 06/30/2016. PROBLEM LIST: Includes: 1. Right middle lobe, right lower lobe infiltrate compatible with pneumonia. 2. Chronic obstructive pulmonary disease with exacerbation. 3. Chronic tobacco use. 4. History of nodule in the right lower lobe. SUBJECTIVE: The patient reports today that her breathing is slightly improved. She states that she still is coughing quite a bit. She states that the mucus is very thick and sometimes she has difficulty expectorating it. She is using a flutter valve but I do not see an incentive spirometer in the room. She does report that the nebulizers do seem to help. She states that the mucus that she gets up is thick and yellow. She states that she has not noticed any blood in the mucus. She states that she does have some pain in her back with coughing. Otherwise, no chest pain. She denies any pleuritic sounding chest pain. She denies any other concerns or problems. She states her appetite comes and goes, but this is typical for her. She has no difficulty moving her bowels. She denies any difficulty voiding. She has no swelling in her extremities. OBJECTIVE: GENERAL: The patient is a 65-year-old female lying in bed. She is alert and oriented x3. Mood is good. Affect is good. VITAL SIGNS: Temp 36.8, pulse 67, respirations 12, blood pressure is 130/75, pulse ox 94% on 2 liters. HEAD, EYES, EARS, NOSE, AND THROAT: Normocephalic, atraumatic. Pupils equal, round and reactive to light and accommodation. [place] moist gingival and buccal mucosa patient with fair dental hygiene. Does have missing teeth present. NECK: Supple. No mass. No adenopathy. No bruit. No thyromegaly. No JVD. CHEST: The patient has some coarse wheezing throughout. She does have rhonchi on the right side mid chest and lower. CARDIOVASCULAR: Regular rate and rhythm. No murmurs, gallops or rubs appreciated. ABDOMEN: Bowel sounds present. Abdomen soft, nontender. No guarding, rigidity or organomegaly. EXTREMITIES: No erythema, no edema, no cyanosis or clubbing. LABORATORY DATA: White count is 14,000, H\T\H 9.4 and 30.0, platelet count 180. The patient had sputum culture coming back showing staph aureus. Final is pending. ASSESSMENT: This is a 65-year-old female who I am familiar with having seen her in the office in 2013 for evaluation for pulmonary nodules. Unfortunately, she was lost to follow and presents with what appears to be right middle lobe and right lower lobe pneumonia at this time. The patient is on good coverage. Vancomycin was recently added due to sputum culture being positive for staph aureus. Will wait for final culture to come back and then reassess and streamline antibiotic treatment. Continue nebulizer treatments as they are. I would like to add in vibration vest and incentive spirometer to see if this helps the patient to mobilize her secretions. We may need to consider adding saline via nebulizer as well at some point, however I would like to hold off on that for now. She was decreased from Solu-Medrol 40 mg q. 8 to twice daily. Will wait and see how she responds to this tomorrow. Hopefully, she responds well, if not we may need to increase it back up to 3 times daily. Will continue to follow through hospitalization.
[2016-06-30] MEDS: TRAMADOL HCL 50 MG TAB PO PRN ×2 (14:12→21:37)
[2016-06-30] MEDS: SIMVASTATIN 20 MG TAB PO SCH (21:15)
[2016-06-30] MEDS: MONTELUKAST SOD 10 MG TAB PO SCH (21:15)
[2016-06-30] MEDS: LEVOFLOXACIN 500 MG TAB PO SCH (21:35)
[2016-06-30] MEDS: METHYLPREDNISOLONE IV 40 MG in SYRINGE 0 ML IV SCH (21:36)
[2016-07-01 02:33] VITALS: PULSE 88; O2SAT 95
[2016-07-01] MEDS: LEVALBUTEROL 1.25MG/0.5ML NEB INH SCH ×4 (02:33→20:48)
[2016-07-01] MEDS: IPRATROPIUM BROMIDE NEB SOLN 0.02% 2.5 ML VIAL INH SCH ×4 (02:33→20:48)
[2016-07-01] MEDS: VANCOMYCIN INJ 900 MG in SODIUM CHLORIDE 0.9% 250ML 250 ML IV SCH ×2 (02:49→12:17)
[2016-07-01] MEDS ORDERED: VANCOMYCIN TROUGH SCH ×2 (05:30→11:30)
[2016-07-01] MEDS: LEVOTHYROXINE 125 MCG TAB PO SCH (05:42)
[2016-07-01 07:55] VITALS: PULSE 69; O2SAT 93
[2016-07-01 08:04] LABS: BASO % 0.1 %; BASO ABS # 0.01 K/uL (0-0.2); COMPLETE YES; HEMATOCRIT 28.9 % (37-47); IG% 0.6 %; LYMPH % 5.2 %; LYMPH ABS # 0.75 K/uL (1.2-3.4); MEAN CELL VOLUME 80.3 fL (80-100); MEAN CORPUSCULAR HGB CONC 31.1 g/dl (32-36); MEAN PLATELET VOLUME 9.7 fL (7.4-10.4); MONO % 5.9 %; NEUT % 88.2 %; PLATELET COUNT 198 K/uL (130-400); WHITE BLOOD COUNT 14.33 K/uL (4.8-10.8)
[2016-07-01 08:32] LABS: CREATININE 0.36 mg/dl (0.60-1.20)
[2016-07-01] MEDS: ENOXAPARIN 40 MG/0.4 ML SYR SC SCH (09:43)
[2016-07-01] MEDS: NICOTINE 7 MG/24 HR TDSY TD SCH (09:43)
[2016-07-01] MEDS: METHYLPREDNISOLONE IV 40 MG in SYRINGE 0 ML IV SCH ×2 (09:43→20:39)
[2016-07-01] MEDS: PANTOprazole SOD 40 MG TAB PO SCH ×2 (09:44→18:10)
[2016-07-01] MEDS: SERTRALINE HCL 100 MG TAB PO SCH (09:44)
[2016-07-01] MEDS: THEOPHYLLINE 300MG EXTENDED REL TAB PO SCH ×2 (09:44→20:29)
[2016-07-01] MEDS: MULTIVITAMIN TAB PO SCH (09:44)
[2016-07-01] MEDS: GUAIFENESIN 600 MG TABCR PO SCH ×2 (09:45→20:28)
[2016-07-01] MEDS: FERROUS SULFATE 325 MG TAB PO SCH ×2 (09:45→20:28)
[2016-07-01] MEDS: LISINOPRIL 5 MG TAB PO SCH (09:45)
--- NOTE | 2016-07-01 11:21 | Progress Note ---
Progress Note ID Consult Dictated #[id number] A/P: 1. MRSA PNA 2. Leukocytosis - likely multifactorial, steroids and infection -Continue vanco, stop levaquin -on tapering steroids -upon d/c can change to po doxy 100mg po bid with food to complete 14 day course -Continue supportive care -Will follow, thank you
--- NOTE | 2016-07-01 11:47 | PROGRESS NOTE ---
DATE: 07/01/2016 DATE: 07/01/2016. PROBLEM LIST: Includes: 1. Right middle lobe and right lower lobe infiltrate compatible with pneumonia. 2. Methicillin-resistant staphylococcus aureus pneumonia. 3. Chronic obstructive pulmonary disease exacerbation. 4. Chronic tobacco use. 5. History of nodules on the right lower lobe which is stable. SUBJECTIVE: The patient reports that she is feeling a little bit better than yesterday. She feels that the mucus is less. She is still coughing. She is still getting some mucus up. She states that it is thick and yellow. She states that she did use the vibration vest last evening that helped her to get quite a bit of mucus up and she did feel that her breathing was easier after she got the mucus up. She states that she did notice some dark coloration in the mucus. She is not sure if it was blood or not. She continues to use her flutter valve as well. She denies any pleuritic chest pain. She states she still has the pain in her back area. She denies any other concerns or problems. No abdominal pain, no nausea or vomiting. Her bowels are moving okay. She states that her appetite is still sort of off and on. She is voiding well. She denies any swelling in her extremities. OBJECTIVE: GENERAL: The patient is a 65-year-old female in no acute distress. She is alert and oriented x3. Mood is good. Affect is good. VITAL SIGNS: Temp 36.9, pulse 97, respirations 20, blood pressure 107/69, pulse ox 92-95% on 2 liters. HEAD, EYES, EARS, NOSE, AND THROAT: Normocephalic, atraumatic. Pupils equal, round and reactive to light and accommodation. Extraocular movements are intact. [place] moist gingival and buccal mucosa. NECK: Supple. No mass. No adenopathy. No bruit. CHEST: The patient still has some coarse wheezes throughout. Rhonchi in the right side of mid chest and lower chest area anteriorly. This does appear to be improved today compared to yesterday. CARDIOVASCULAR: Regular rate and rhythm. There are no murmurs, gallops or rubs. ABDOMEN: Soft, nontender. No guarding, rigidity or organomegaly. EXTREMITIES: No erythema or edema. There is no cyanosis or clubbing noted. NEUROLOGIC: Cranial nerves II through XII grossly intact. No focal deficit noted. LABORATORY DATA: Sputum culture came back showing methicillin resistant staph aureus susceptible to vancomycin which she is on, also susceptible to tetracycline, Bactrim and clindamycin orally and rifampin through IV. No new imaging data for today. White count is 14,000, H\T\H 9.0 and 28.9, platelet count 198,000. IMPRESSION: This is a 65-year-old female with a longstanding history of COPD and chronic tobacco use who presented with what appeared to be a right middle lobe and right lower lobe pneumonia. The patient did have sputum culture done which is showing a methicillin resistant staph aureus which is susceptible to vancomycin which patient is on through IV currently, also rifampin through IV, also susceptible to Bactrim, tetracycline and clindamycin. I did see that an infectious disease consult was placed. Will await their recommendation as far as narrowing antibiotic spectrum. At this point she seems to be responding well to the vibration vest, I want to continue that. I want her to continue her incentive spirometer as well as her flutter valve to continue to mobilize secretions. This was discussed with her. I did provide her with a mouthpiece and tubing for her nebulizer for home and advised her to make sure that she continues her home use. I did discuss with her following up in the office as we have seen the patient in the past before. She was agreeable to this. I would continue the Solu-Medrol at 40 mg twice daily today and then taper and switch over to oral tomorrow going with 30 mg twice daily of prednisone and then continuing to taper as patient tolerates. We will continue to follow patient through hospitalization. ASH
--- NOTE | 2016-07-01 12:44 | INFECT. DISEASE CONSULTATION ---
DATE OF CONSULTATION: 07/01/2016 REQUESTING PHYSICIAN: Dr. Burton. HISTORY OF PRESENT ILLNESS: This is a 65-year-old female who was admitted from home on the 29 of June secondary to worsening pulmonary symptoms. She became acutely ill on 28 of June with worsening cough, shortness of breath and subjective fevers. She does have a history of underlying COPD for which she follows in [facility]. She is on chronic theophylline therapy. She does have a history of sleep apnea but does not use CPAP at home. She states that she does use oxygen at night. She did not find that she was requiring more oxygen prior to admission to the hospital. She did have an x-ray in the Emergency Room which showed a right middle lobe infiltrate. She is complaining of back pain on the right side, especially with deep inspiration. She denies any hemoptysis at home; however, she was having productive cough with yellow mucus. This continued from the to the and continued to worsen. She had additional wheezing, some dyspnea on exertion. She did not have any inhalers or nebulizer treatments at home and subsequently came to the Emergency Room. She was started on vancomycin as well as Levaquin and appears to be tolerating these well. She was also started on IV steroids. These have been tapered during her stay. She did have a leukocytosis of 11.9 in the Emergency Room, this has increased to 14.3; however, she remains on intravenous steroids. She did have an isolated fever of 37.6 on the , but has otherwise been afebrile. Today in examination, she is sitting up in bed and states she is comfortable. Overall, she states she is feeling significantly better but continues to have intermittent cough. Her pleuritic chest pain is improving. She denies any fevers or chills currently. She currently is on oxygen and has restarted her CPAP at night which she appears to be tolerating as well. She denies any nausea, vomiting or diarrhea. She denies any sick contacts. She denies any urinary complaints. All remaining review of systems are reviewed and are negative except for as noted above. PAST MEDICAL HISTORY: Significant for hypertension, high cholesterol, hypothyroidism, anemia, degenerative joint disease, insomnia, anxiety, COPD, obstructive sleep apnea, history of lung nodule. PAST SURGICAL HISTORY: Significant for gastric bypass, hernia repair, tubal ligation and ovarian cyst removal. FAMILY HISTORY: Noncontributory. ALLERGIES: SHE HAS ALLERGIES TO KEFLEX. SOCIAL HISTORY: Positive for daily tobacco use. She denies any alcohol or drug use. CURRENT MEDICATIONS: Include Solu-Medrol, vancomycin, Levaquin, guaifenesin, Singulair, Zocor, NicoDerm patch, Lovenox, lisinopril, multivitamins, Zoloft, iron, theophylline, Atrovent, Xopenex, Protonix, Synthroid, MiraLax, Dilaudid, Zofran and Tylenol. PHYSICAL EXAMINATION: VITAL SIGNS: She is afebrile, pulse 69, respiratory rate 18, blood pressure 107/69, oxygen saturation is 93%-95% on 2 liters nasal cannula. GENERAL: She is awake, alert and oriented x3. She is in no acute distress. HEENT: Mucous membranes are moist. Extraocular muscles are intact. HEART: Regular. LUNGS: Decreased throughout; however, there is expiratory wheezing diffusely on the right. ABDOMEN: Soft, nontender, nondistended. There is no edema. SKIN: Without rash. LABORATORY STUDIES: CBC today reveals a white blood cell count of 14.3, hemoglobin 9.0, hematocrit 28.9 and platelets are 198. Chemistry panel on the 3rd reveals a sodium of 141, potassium 4.3, chloride 105, bicarbonate 28, BUN 8, creatinine 0.3, glucose is 113. Flu swab in the ER was negative. Hep C antibody is negative. Blood cultures from the 2nd are no growth to date x2 sets and MRSA swab was positive. Sputum culture from the 2nd is growing community-acquired MRSA with a vanco KM of 2. Chest x-ray in the ER again shows right middle lobe dense consolidation. ASSESSMENT AND PLAN: 1. Community-acquired pneumonia with methicillin-resistant Staphylococcus aureus. 2. Leukocytosis, likely multifactorial from steroids and pneumonia. At this time, she can be continued on IV vancomycin and tapered steroids. Will discontinue her levofloxacin. Upon discharge from the hospital, she can be placed on a course of oral doxycycline to complete a 14-day course. She will continue with supportive care and nebulizer treatments. We will follow along with you. Thank you for this consultation.
--- NOTE | 2016-07-01 13:03 | Pharmacy Progress Note ---
Pharmacy Antibiotic Prog Note Date of Service: Jul 01, 2016. Subjective: The patient is currently receiving vancomycin and levofloxacin for the treatment of sepsis secondary to pneumonia The patient is currently on day # 3 of broad-spectrum antibiotic IV therapy. Objective: Height (Feet): 5 Height (Inches): 1.00 Weight (Kilograms): 61.100 Levels: Item Value Date Time Vancomycin Level Trough 10.9 mcg/ml 07/01/16 1148 Lab Results (24hrs): Laboratory Tests Test 07/01/16 07:32 Creatinine 0.36 mg/dl White Blood Count 14.33 K/uL Red Blood Count 3.60 M/uL Hemoglobin 9.0 g/dL Hematocrit 28.9 % Mean Corpuscular Volume 80.3 fL Mean Corpuscular Hemoglobin 25.0 pg Mean Corpuscular Hemoglobin Concent 31.1 g/dl Platelet Count 198 K/uL Mean Platelet Volume 9.7 fL Neutrophils (%) (Auto) 88.2 % Lymphocytes (%) (Auto) 5.2 % Monocytes (%) (Auto) 5.9 % Eosinophils (%) (Auto) 0.0 % Basophils (%) (Auto) 0.1 % Neutrophils # (Auto) 12.65 K/uL Lymphocytes # (Auto) 0.75 K/uL Monocytes # (Auto) 0.84 K/uL Eosinophils # (Auto) 0.00 K/uL Basophils # (Auto) 0.01 K/uL Micro Results: Item Value Date Time Blood Culture - Preliminary Resulted 06/29/16 0040 Blood NO GROWTH TO DATE. Blood Culture - Preliminary Resulted 06/29/16 0048 Blood NO GROWTH TO DATE. Gram Stain - Final Complete 06/29/16 0525 Sputum Expectorated Sputum MRSA DNA Surveillance Screen - Final Complete 06/30/16 1000 Nasal Specimen Positive for MRSA by DNA Probe SPEC #: [id number] PAPO: 06/29/16 STATUS: COMP REQ #: [id number] RECD: 06/29/[address] [facility] [address]: Edenilson Burton M.D. SOURCE: SPUTUM ENTR: 06/29/[address] [facility] DR: Edenilson Moreno DO SPDESC: EXP.SPUTUM Andree, Manabendra, M.D. Rozick, Destin S., M.D. ORDERED: SPUT CULT/SMR COMMENTS: Has Specimen Been Obtained/Collected? Y Procedure Result Verified Site GRAM STAIN Final 06/29/16-726 RESULT MODERATE POLYS MANY GRAM POSITIVE COCCI SPUTUM CULTURE Final 07/01/16-799 Organism 1 STAPHYLOCOCCUS AUREUS QUANITY MANY SENS SENSITIVITY TO FOLLOW NORMAL NAV MODERATE NORMAL NAV SENSITIVITY RESULT INDICATES A METHICILLIN RESISTANT STAPH. AUREUS. PHONED TO [facility] [employer] ON 07/01/16 AT 0711 BY Marco [place]. Results were verbalized back to EVY. RESULTS WERE ALSO CALLED TO [facility] CONTROL ANSWERING MACHINE ON 07/01/16 BY EVY. 1. STAPHYLOCOCCUS AUREUS Target Route Dose RX AB Cost M.I.C. IQ ------ ----- ------ -- ------ -------- - ------ TRIMET/SULFA S <=0.5/ 9.5 * OXACILLIN R * >2 VANCOMYCIN S 2 ERYTHROMYCIN R >4 TETRACYCLINE S <=4 CLINDAMYCIN S <=0.5 RIFAMPIN S <=1 S = SENSITIVE I = INTERMEDIATE R = RESISTANT Assessment & Plan: Assessment: * confirmed MRSA pneumonia in a 65 year old * current regimen with vancomycin and levofloxacin * levofloxacin discontinued by ID provider to narrow regimen based on C&S * Vancomycin trough sub-therapeutic for pulmonary source of infection * Goal trough 15-20mcg/mL * increase both dose and frequency of vancomycin Plan: * Increase Vancomycin to 1000mg IV q8H * Repeat trough once steady state reached * trough level ordered for 07/03/16 prior to 04:00 dose * ID recommends discharge on doxycycline to compete a 14 day course Pharmacy will continue to follow and will adjust dose/frequency as necessary. Thank you
[2016-07-01 14:35] VITALS: PULSE 94; O2SAT 92
--- NOTE | 2016-07-01 15:14 | Hospitalist Progress Note ---
Hospitalist Progress Note Date of Service Jul 01, 2016. Subjective Pt evaluation today including: conversation w/ patient, physical exam, chart review, lab review, review of inpatient medication list Patient is interviewed and examined at bedside. Patient states SOB and cough improving. Denies any chest pain, palpitations or any new symptoms. Medications Medications (Trade) Dose Ordered Sig/Kaycee Route Start Time Stop Time Status Last Admin Dose Admin Methylprednisolone Sodium Succinate 40 mg/Syringe 0.64 ml @ 1.5 mls/min BID IV 06/30/16 21:00 07/30/16 20:59 07/01/16 09:43 1.5 MLS/MIN Vancomycin HCl/ Sodium Chloride (Vancomycin Inj/ Nss 250ml) 268 ml @ 125 mls/hr Q10H IV 06/30/16 16:00 07/01/16 12:55 DC 07/01/16 12:17 125 MLS/HR Objective Vital Signs Date Time Temp Pulse Resp B/P Pulse Ox O2 Delivery O2 Flow Rate FiO2 07/01/16 14:35 94 18 92 Nasal Cannula 2.0 07/01/16 08:01 Nasal Cannula 2.0 07/01/16 07:55 69 18 93 Nasal Cannula 2.0 07/01/16 02:33 88 18 95 Nasal Cannula 2.0 07/01/16 00:10 Nasal Cannula 2.0 06/30/16 23:20 36.9 97 20 107/69 92 Nasal Cannula 2.0 06/30/16 21:00 Nasal Cannula 2.0 06/30/16 19:45 92 20 94 Nasal Cannula 2.0 06/30/16 15:20 36.8 89 18 102/66 91 Nasal Cannula 2.0 Physical Exam Notes: General Appearance: WD/WN, no apparent distress Eyes: normal inspection, PERRL, EOMI, sclerae normal ENT: normal ENT inspection, hearing grossly normal, TMs normal, pharynx normal Neck: supple, no adenopathy, thyroid normal, no JVD, no carotid bruits, trachea midline Respiratory/Chest: chest non-tender, no respiratory distress, no accessory muscle use, + decreased breath sounds, + rhonchi Cardiovascular: regular rate, rhythm, no edema, no JVD, no murmur, + tachycardia Abdomen: normal bowel sounds, non tender, soft, no organomegaly, no pulsatile mass Extremities: normal range of motion, non-tender, normal inspection, no pedal edema, no calf tenderness, normal capillary refill, pelvis stable 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: 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, no motor/sensory deficits, alert, normal mood/affect, oriented x 3 Skin: normal color, warm/dry, no rash Lymphatic: no adenopathy Laboratory Results Last 24 Hours Test 07/01/16 07:32 07/01/16 11:48 White Blood Count 14.33 K/uL Red Blood Count 3.60 M/uL Hemoglobin 9.0 g/dL Hematocrit 28.9 % Mean Corpuscular Volume 80.3 fL Mean Corpuscular Hemoglobin 25.0 pg Mean Corpuscular Hemoglobin Concent 31.1 g/dl Platelet Count 198 K/uL Mean Platelet Volume 9.7 fL Neutrophils (%) (Auto) 88.2 % Lymphocytes (%) (Auto) 5.2 % Monocytes (%) (Auto) 5.9 % Eosinophils (%) (Auto) 0.0 % Basophils (%) (Auto) 0.1 % Neutrophils # (Auto) 12.65 K/uL Lymphocytes # (Auto) 0.75 K/uL Monocytes # (Auto) 0.84 K/uL Eosinophils # (Auto) 0.00 K/uL Basophils # (Auto) 0.01 K/uL RDW Standard Deviation 53.4 fL RDW Coefficient of Variation 18.0 % Immature Granulocyte % (Auto) 0.6 % Immature Granulocyte # (Auto) 0.08 K/uL Nucleated RBC Absolute Count (auto) 0.02 K/uL Nucleated Red Blood Cells % 0.2 % Creatinine 0.36 mg/dl Est Creatinine Clear Calc Drug Dose 132.3 ml/min Estimated GFR () 132.1 Estimated GFR (Non- 114.0 Vancomycin Level Trough 10.9 mcg/ml Diagnostic Results CXR: 1. Patchy density within the right lower lobe. This may represent atelectasis or pneumonia. Recommend one month chest x-ray follow-up to ensure resolution. 2. Stable mild cardiomegaly. Assessment and Plan Patient is a 65 Yr F with PMH of COPD, AMIRAH, Tobacco use disorder, Hypothyroidism, Hyperlipidemia, Chronic anemia, H/O Gastric bypass, Pulmonary Nodule, H/O MRSA presented with cough with expectoration, fever, worsening SOB from baseline Acute on Chronic Hypoxic respiratory failure and Sepsis: Secondary to MRSA Community acquired pneumonia (Right middle and lower lobe infiltrates) and COPD exacerbation Continue methylprednisolone 40 mg IV BID Leukocytosis secondary to glucocorticoids-Stable Continue bronchodilators, glucocorticoids, oxygen support Continue Vancomycin, DC Levaquin Sputum Culture: Staph.aureus, Follow up blood cultures, MRSA-Nasal Appreciate pulmonary and ID help Plan to DC on Doxycycline for 2 weeks Continue Vibration vest and Incentive Spirometry Needs a mouthpiece for her nebulizer at the time of discharge Right lower lobe lung nodule: Diagnosed in 2012 Stable follow up as outpatient Hypothyroidism: Continue Levothyroxine Hyperlipidemia: Continue simvastatin Tobacco use disorder: 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
[2016-07-01 15:50] VITALS: BP 99/63; PULSE 88; TEMP 36.8; O2SAT 91
[2016-07-01] MEDS: VANCOMYCIN INJ 1,000 MG in SODIUM CHLORIDE 0.9% 250ML 250 ML IV SCH (20:26)
[2016-07-01] MEDS: SIMVASTATIN 20 MG TAB PO SCH (20:28)
[2016-07-01] MEDS: MONTELUKAST SOD 10 MG TAB PO SCH (20:28)
[2016-07-01 20:51] VITALS: PULSE 90; O2SAT 90
[2016-07-01 23:44] VITALS: BP 108/68; PULSE 79; TEMP 37.2; O2SAT 93
[2016-07-02] VITALS (7 sets, daily range): BP systolic 103–109; BP diastolic 67–73; PULSE 68–87; TEMP 36.9–37; O2SAT 91–94
[2016-07-02] MEDS: IPRATROPIUM BROMIDE NEB SOLN 0.02% 2.5 ML VIAL INH SCH ×4 (01:29→20:56)
[2016-07-02] MEDS: LEVALBUTEROL 1.25MG/0.5ML NEB INH SCH ×4 (01:29→20:56)
[2016-07-02] MEDS: VANCOMYCIN INJ 1,000 MG in SODIUM CHLORIDE 0.9% 250ML 250 ML IV SCH ×3 (04:04→19:44)
[2016-07-02] MEDS: LEVOTHYROXINE 125 MCG TAB PO SCH (05:31)
[2016-07-02 06:03] LABS: BASO % 0.1 %; BASO ABS # 0.02 K/uL (0-0.2); COMPLETE YES; IG% 0.9 %; LYMPH ABS # 0.88 K/uL (1.2-3.4); MEAN CELL VOLUME 80.4 fL (80-100); MEAN CORPUSCULAR HEMOGLOBIN 25.2 pg (25-34); MEAN CORPUSCULAR HGB CONC 31.3 g/dl (32-36); MEAN PLATELET VOLUME 9.8 fL (7.4-10.4); MONO % 5.9 %; NEUT % 87.1 %; PLATELET COUNT 228 K/uL (130-400); RED BLOOD COUNT 3.73 M/uL (4.2-5.4); WHITE BLOOD COUNT 14.76 K/uL (4.8-10.8)
[2016-07-02 06:29] LABS: CREATININE 0.48 mg/dl (0.60-1.20)
[2016-07-02] MEDS: GUAIFENESIN 600 MG TABCR PO SCH ×2 (10:16→19:54)
[2016-07-02] MEDS: PANTOprazole SOD 40 MG TAB PO SCH ×2 (10:16→17:32)
[2016-07-02] MEDS: FERROUS SULFATE 325 MG TAB PO SCH ×2 (10:16→19:54)
[2016-07-02] MEDS: THEOPHYLLINE 300MG EXTENDED REL TAB PO SCH ×2 (10:17→19:55)
[2016-07-02] MEDS: LISINOPRIL 5 MG TAB PO SCH (10:17)
[2016-07-02] MEDS: MULTIVITAMIN TAB PO SCH (10:17)
[2016-07-02] MEDS: SERTRALINE HCL 100 MG TAB PO SCH (10:17)
[2016-07-02] MEDS: ENOXAPARIN 40 MG/0.4 ML SYR SC SCH (10:18)
[2016-07-02] MEDS: NICOTINE 7 MG/24 HR TDSY TD SCH (10:18)
[2016-07-02] MEDS: METHYLPREDNISOLONE IV 40 MG in SYRINGE 0 ML IV SCH (10:27)
--- NOTE | 2016-07-02 18:44 | Progress Note ---
Internal Med Progress Note Date of Service: Jul 02, 2016. Provider Documentation: SUBJECTIVE: Patient is interviewed and examined at bedside. States having nausea this morning. SOB and cough improving. Denies any chest pain. OBJECTIVE: Vital Signs-as noted below General Appearance: WD/WN, no apparent distress Eyes: normal inspection, PERRL, EOMI, sclerae normal ENT: normal ENT inspection, hearing grossly normal, TMs normal, pharynx normal Neck: supple, no adenopathy, thyroid normal, no JVD, no carotid bruits, trachea midline Respiratory/Chest: chest non-tender, no respiratory distress, no accessory muscle use, + decreased breath sounds, + rhonchi and expiratory wheezes Cardiovascular: regular rate, rhythm, no edema, no JVD, no murmur Abdomen: normal bowel sounds, non tender, soft, no organomegaly, no pulsatile mass Extremities: normal range of motion, non-tender, normal inspection, no pedal edema, no calf tenderness, normal capillary refill, pelvis stable 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 ASSESSMENT & PLAN: Patient is a 65 Yr F with PMH of COPD, AMIRAH, Tobacco use disorder, Hypothyroidism, Hyperlipidemia, Chronic anemia, H/O Gastric bypass, Pulmonary Nodule, H/O MRSA presented with cough with expectoration, fever, worsening SOB from baseline. Acute on Chronic Hypoxic respiratory failure and Sepsis: Secondary to MRSA Community acquired pneumonia (Right middle and lower lobe infiltrates) and COPD exacerbation Will taper to PO glucocorticoids- Prednisone 30 mg BID Leukocytosis stable Continue bronchodilators, oxygen support, Vancomycin Sputum Culture: MRSA, Blood cultures: No growth to date Appreciate pulmonary and ID help Plan to DC on Doxycycline 100 mg BID for 2 weeks Continue Vibration vest and Incentive Spirometry Right lower lobe lung nodule: Diagnosed in 2012 Stable follow up as outpatient Hypothyroidism: Continue Levothyroxine Hyperlipidemia: Continue simvastatin 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 S/O gastric Bypass: done in 2005 Stable H/O Sleep apnea: Currently well controlled after Gastric Bypass surgery and weight loss Stable Hypertension: Stable, Continue lisinopril DVT Px: Lovenox SQ Vital Signs: Date Time Temp Pulse Resp B/P Pulse Ox O2 Delivery O2 Flow Rate FiO2 07/02/16 14:51 37.0 87 16 103/67 93 Nasal Cannula 2.0 07/02/16 14:04 68 18 94 Nasal Cannula 2.0 07/02/16 08:32 Nasal Cannula 2.0 07/02/16 08:02 36.9 81 16 109/73 91 2.0 07/02/16 07:48 68 18 92 Nasal Cannula 2.0 07/02/16 01:29 84 18 93 Nasal Cannula 2.0 07/01/16 23:44 37.2 79 16 108/68 93 Nasal Cannula 2.0 07/01/16 23:15 Nasal Cannula 2.0 07/01/16 20:51 90 18 90 Nasal Cannula 2.0 Lab Results: Results Past 24 Hours Test 07/02/16 05:29 Range/Units White Blood Count 14.76 4.8-10.8 K/uL Red Blood Count 3.73 4.2-5.4 M/uL Hemoglobin 9.4 12.0-16.0 g/dL Hematocrit 30.0 37-47 % Mean Corpuscular Volume 80.4 80-100 fL Mean Corpuscular Hemoglobin 25.2 25-34 pg Mean Corpuscular Hemoglobin Concent 31.3 32-36 g/dl Platelet Count 228 130-400 K/uL Mean Platelet Volume 9.8 7.4-10.4 fL Neutrophils (%) (Auto) 87.1 % Lymphocytes (%) (Auto) 6.0 % Monocytes (%) (Auto) 5.9 % Eosinophils (%) (Auto) 0.0 % Basophils (%) (Auto) 0.1 % Neutrophils # (Auto) 12.85 1.4-6.5 K/uL Lymphocytes # (Auto) 0.88 1.2-3.4 K/uL Monocytes # (Auto) 0.87 0.11-0.59 K/uL Eosinophils # (Auto) 0.00 0-0.5 K/uL Basophils # (Auto) 0.02 0-0.2 K/uL RDW Standard Deviation 52.7 36.4-46.3 fL RDW Coefficient of Variation 17.8 11.5-14.5 % Immature Granulocyte % (Auto) 0.9 % Immature Granulocyte # (Auto) 0.14 0.00-0.02 K/uL Creatinine 0.48 0.60-1.20 mg/dl Est Creatinine Clear Calc Drug Dose 99.3 ml/min Estimated GFR () 120.1 Estimated GFR (Non- 103.7
--- NOTE | 2016-07-02 19:00 | PULMONARY PROGRESS NOTE ---
DATE: 07/02/2016 TIME: 6:25 p.m. SUBJECTIVE: The patient is feeling much better. Her shortness of breath is significantly improved, although not back to normal. She is still coughing. 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 She is not having any chest pain. She was able to ambulate today with oxygen without significant difficulties. OBJECTIVE: GENERAL: The patient is comfortable at rest. VITAL SIGNS: Temperature is 37 degrees. Heart rate is 87 beats per minute. The rhythm was regular. Blood pressure 103/67. Respiratory rate is 18 breaths per minute. EARS, NOSE, THROAT: Exam is unremarkable. CHEST: She still has persistent rhonchi bilaterally that would be considered moderate. She is, however, moving her air well. Saturation was 93% on 2 liters. EXTREMITIES: Showed no edema. IMPRESSIONS: 1. Pneumonia, right middle lobe and right lower lobe. 2. Chronic obstructive pulmonary disease exacerbation. 3. Nicotine addiction. 4. Right lower lobe nodule. COMMENTS AND RECOMMENDATIONS: The patient is clinically improved. She is on Solu-Medrol 40 mg IV b.i.d. I believe she could be changed to oral prednisone. Her sputum culture has grown Staphylococcus aureus; it is methicillin resistant. She is on vancomycin. Will check a followup x-ray to see if the infiltrates are improving. Continue the neb treatments.
[2016-07-02] MEDS: TRAMADOL HCL 50 MG TAB PO PRN (19:52)
[2016-07-02] MEDS: SIMVASTATIN 20 MG TAB PO SCH (19:54)
[2016-07-02] MEDS: MONTELUKAST SOD 10 MG TAB PO SCH (19:54)
[2016-07-03 01:37] VITALS: PULSE 84; O2SAT 92
[2016-07-03] MEDS: LEVALBUTEROL 1.25MG/0.5ML NEB INH SCH ×4 (01:37→19:14)
[2016-07-03] MEDS: IPRATROPIUM BROMIDE NEB SOLN 0.02% 2.5 ML VIAL INH SCH ×4 (01:37→19:14)
[2016-07-03] MEDS ORDERED: VANCOMYCIN TROUGH SCH (03:30)
[2016-07-03 03:59] LABS: HEMATOCRIT 29.1 % (37-47); MEAN CELL VOLUME 79.5 fL (80-100); MEAN CORPUSCULAR HEMOGLOBIN 25.1 pg (25-34); MEAN CORPUSCULAR HGB CONC 31.6 g/dl (32-36); MEAN PLATELET VOLUME 9.5 fL (7.4-10.4); PLATELET COUNT 235 K/uL (130-400); RED BLOOD COUNT 3.66 M/uL (4.2-5.4)
[2016-07-03] MEDS: VANCOMYCIN INJ 1,000 MG in SODIUM CHLORIDE 0.9% 250ML 250 ML IV SCH ×3 (04:14→20:24)
[2016-07-03 04:15] LABS: BUN/CREATININE RATIO 18.5 (10-20); CREATININE 0.55 mg/dl (0.60-1.20)
[2016-07-03 04:33] LABS: COMPLETE YES; LYMPH ABS # 2.56 K/uL (1.2-3.4); NEUTROPHILS % 74.8 %; POLYCHROMASIA 1+; STOMATOCYTE 1+
[2016-07-03] MEDS: LEVOTHYROXINE 125 MCG TAB PO SCH (05:55)
[2016-07-03 07:25] VITALS: PULSE 89; O2SAT 92
[2016-07-03 07:49] VITALS: BP 103/65; PULSE 80; TEMP 37.2; O2SAT 90
--- NOTE | 2016-07-03 08:23 | DIAGNOSTIC IMAGING REPORT ---
TWO VIEW CHEST CLINICAL HISTORY: Pneumonia. FINDINGS: PA and lateral chest radiographs are compared to study dated 06/29/2016 and correlated with chest CT dated 09/28/2012. The PA view is degraded by patient rotation. The cardiac silhouette is enlarged and there is atherosclerotic calcification of the thoracic aorta. The pulmonary vasculature is noncongested. Emphysema and chronic interstitial thickening is similar to previous. There are increasingly confluent foci of consolidation at the right apex and in the right lower lobe as compared to the 06/29/2016 examination. No pleural effusion is seen. The left lung is grossly clear. There is no pneumothorax. The skeletal structures are osteopenic. Degenerative change is noted throughout the thoracic spine. A compression deformity is noted in the lower thoracic region. IMPRESSION: 1. Enlargement of the cardiac silhouette. Some of this likely represents pericardial effusion when correlated with prior chest CT scans. Consider follow-up with echocardiography for further assessment. 2. Increasingly confluent foci of airspace consolidation are noted in the right apex and the right lower lobe. This likely corresponds to the reported clinical history of pneumonia. Radiographic follow-up to resolution will be required. 3. Emphysema. Electronically signed by: Darian Donnelly M.D. 07/03/2016 8:22 AM Dictated Date/Time: 07/03/2016 8:17 AM
[2016-07-03] MEDS: GUAIFENESIN 600 MG TABCR PO SCH ×2 (08:54→20:24)
[2016-07-03] MEDS: SERTRALINE HCL 100 MG TAB PO SCH (08:55)
[2016-07-03] MEDS: THEOPHYLLINE 300MG EXTENDED REL TAB PO SCH ×2 (08:55→20:24)
[2016-07-03] MEDS: FERROUS SULFATE 325 MG TAB PO SCH ×2 (08:56→20:24)
[2016-07-03] MEDS: MULTIVITAMIN TAB PO SCH (08:56)
[2016-07-03] MEDS: ENOXAPARIN 40 MG/0.4 ML SYR SC SCH (08:56)
[2016-07-03] MEDS: NICOTINE 7 MG/24 HR TDSY TD SCH (08:56)
[2016-07-03] MEDS: PANTOprazole SOD 40 MG TAB PO SCH ×2 (08:57→18:00)
[2016-07-03] MEDS: LISINOPRIL 5 MG TAB PO SCH (08:57)
--- NOTE | 2016-07-03 09:09 | Pharmacy Progress Note ---
Pharmacy Antibiotic Prog Note Date of Service: Jul 03, 2016. Subjective: The patient is currently receiving vancomycin 1g IV q8h. The patient is currently on day #5 of vancomycin IV therapy. Objective: Height (Feet): 5 Height (Inches): 1.00 Weight (Kilograms): 61.100 Levels: Item Value Date Time Vancomycin Level Trough 10.9 mcg/ml 07/01/16 1148 Vancomycin Level Trough 16.7 mcg/ml 07/03/16 0335 Lab Results (24hrs): Laboratory Tests Test 07/03/16 03:35 BUN/Creatinine Ratio 18.5 Blood Urea Nitrogen 10 mg/dl Creatinine 0.55 mg/dl White Blood Count 12.80 K/uL Red Blood Count 3.66 M/uL Hemoglobin 9.2 g/dL Hematocrit 29.1 % Mean Corpuscular Volume 79.5 fL Mean Corpuscular Hemoglobin 25.1 pg Mean Corpuscular Hemoglobin Concent 31.6 g/dl Platelet Count 235 K/uL Mean Platelet Volume 9.5 fL Assessment & Plan: ASSESSMENT: * Patient is a 65 year-old female admitted with MRSA CAP. * Pharmacy was consulted to dose the patient's vancomycin IV therapy. * Patient was on 1g IV q8h of the vancomycin. * Goal trough fo 15-20mcg/ml. * SS trough level returned back at 16.7mcg/ml on this dose, which is in therapeutic range. * ID was consulted on the patient and recommended patient to DC on doxycycline 100mg BID x 2 weeks. * BCx2 showed NG. Sputum grew MRSA with vancomycin KM=2. Patient is MRSA positive on MRSA nasal swab. PLAN: * Will continue patient on vancomycin 1g IV q8h. * Will follow patient daily if there are any changes in renal function. * No additional levels planned on patient unless renal function changes. Pharmacy will continue to follow and will adjust dose/frequency as necessary. Thank you
[2016-07-03 14:23] VITALS: PULSE 88; O2SAT 94
--- NOTE | 2016-07-03 15:47 | PULMONARY PROGRESS NOTE ---
DATE: 07/03/2016 DATE: 07/03/2016. TIME: 3:10 p.m. SUBJECTIVE: The patient generally feels the same or better than yesterday. She still has some cough productive of thick yellow sputum that has not changed much. There has been no hemoptysis. She is minimally short of breath. Her breathing has improved a lot compared with admission. Her appetite is somewhat decreased. She is not nauseated however. OBJECTIVE: GENERAL: The patient appeared comfortable. Temperature today 37.2. EARS, NOSE, THROAT: Exam is unremarkable. VITAL SIGNS: Heart rate 88 per minute. Blood pressure 103/65. Respiratory rate 18 breaths per minute. LUNGS: Auscultation revealed rhonchi bilaterally in upper and lower lung zones, but greater on the right than the left. Saturation was 94% on 2 liters. ABDOMEN: Soft and nontender. EXTREMITIES: Showed no cyanosis, clubbing or edema. Chest x-ray done today shows a significant increase in the size of the infiltrate in the right mid to lower lung field that appears to be posteriorly and probably is in the superior segment of the right lower lobe. There is now some new infiltrate seen in the right upper lobe in 2 separate areas. This may reflect the x-ray lagging behind. LABORATORY DATA: White count today is 12.8. Hemoglobin is 9.2. Platelets 235,000. Electrolytes show sodium 138, potassium 4.0, chloride 102, bicarbonate 31. BUN is 10 with a creatinine of 0.55. IMPRESSIONS: 1. Pneumonia, right lower lobe and right upper lobe -- progressive radiographically. 2. Chronic obstructive pulmonary disease exacerbation. 3. Nicotine addiction. 4. Right lower lobe nodule. COMMENTS AND RECOMMENDATIONS: The patient is clinically improved, although the x-rays are markedly worse. I would continue with the vancomycin. She was changed to prednisone. This likely could be decreased perhaps in another day or so as well. Would continue with the neb treatments with levalbuterol and ipratropium. The x-ray findings are much more abnormal than suspected considering the patient's clinical status. She will need to have follow-up x-rays until clear after she leaves the hospital.
[2016-07-03 16:12] VITALS: BP 100/68; PULSE 75; TEMP 36.8; O2SAT 93
--- NOTE | 2016-07-03 17:30 | Progress Note ---
Internal Med Progress Note Date of Service: Jul 03, 2016. Provider Documentation: SUBJECTIVE: Patient is interviewed and examined at bedside. She feels less SOB and her cough improving. Denies any chest pain. OBJECTIVE: Vital Signs-as noted below General Appearance: WD/WN, no apparent distress Eyes: normal inspection, PERRL, EOMI, sclerae normal ENT: normal ENT inspection, hearing grossly normal, TMs normal, pharynx normal Neck: supple, no adenopathy, thyroid normal, no JVD, no carotid bruits, trachea midline Respiratory/Chest: chest non-tender, no respiratory distress, no accessory muscle use, + decreased breath sounds, + rhonchi and expiratory wheezes Cardiovascular: regular rate, rhythm, no edema, no JVD, no murmur Abdomen: normal bowel sounds, non tender, soft, no organomegaly, no pulsatile mass Extremities: normal range of motion, non-tender, normal inspection, no pedal edema, no calf tenderness, normal capillary refill, pelvis stable 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 ASSESSMENT & PLAN: Patient is a 65 Yr F with PMH of COPD, AMIRAH, Tobacco use disorder, Hypothyroidism, Hyperlipidemia, Chronic anemia, H/O Gastric bypass, Pulmonary Nodule, H/O MRSA presented with cough with expectoration, fever, worsening SOB from baseline. Acute on Chronic Hypoxic respiratory failure and Sepsis: Secondary to MRSA Community acquired pneumonia (Right middle and lower lobe infiltrates) and COPD exacerbation Continue Prednisone 30 mg BID Leukocytosis improving Continue bronchodilators, oxygen support, Vancomycin Sputum Culture: MRSA, Blood cultures: No growth to date Appreciate pulmonary and ID help Plan to DC on Doxycycline 100 mg BID for 2 weeks Continue Vibration vest and Incentive Spirometry Repeat CXR: findings suggestive of pericardial effusion, Will get ECHO to further eval Titrate off oxygen as able Right lower lobe lung nodule: Diagnosed in 2012 Stable follow up as outpatient Hypothyroidism: Continue Levothyroxine Hyperlipidemia: Continue simvastatin 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 use 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 S/O gastric Bypass: done in 2005 Stable H/O Sleep apnea: Currently well controlled after Gastric Bypass surgery and weight loss Stable Hypertension: Stable, Continue lisinopril DVT Px: Lovenox SQ Vital Signs: Date Time Temp Pulse Resp B/P Pulse Ox O2 Delivery O2 Flow Rate FiO2 07/03/16 16:12 36.8 75 18 100/68 93 Nasal Cannula 2.0 07/03/16 14:23 88 18 94 Nasal Cannula 2.0 07/03/16 07:49 37.2 80 18 103/65 90 Nasal Cannula 2.0 07/03/16 07:41 Nasal Cannula 2.0 07/03/16 07:25 89 18 92 Nasal Cannula 2.0 07/03/16 01:37 84 18 92 Nasal Cannula 2.0 07/03/16 00:00 Nasal Cannula 2.0 07/02/16 22:56 36.9 80 16 109/68 92 Nasal Cannula 2.0 07/02/16 20:57 84 18 92 Nasal Cannula 2.0 Lab Results: Results Past 24 Hours Test 07/03/16 03:35 Range/Units White Blood Count 12.80 4.8-10.8 K/uL Red Blood Count 3.66 4.2-5.4 M/uL Hemoglobin 9.2 12.0-16.0 g/dL Hematocrit 29.1 37-47 % Mean Corpuscular Volume 79.5 80-100 fL Mean Corpuscular Hemoglobin 25.1 25-34 pg Mean Corpuscular Hemoglobin Concent 31.6 32-36 g/dl Platelet Count 235 130-400 K/uL Mean Platelet Volume 9.5 7.4-10.4 fL RDW Standard Deviation 52.0 36.4-46.3 fL RDW Coefficient of Variation 17.8 11.5-14.5 % Nucleated RBC Absolute Count (auto) 0.03 0-0 K/uL Neutrophils % (Manual) 74.8 % Lymphocytes % (Manual) 20.0 % Monocytes % (Manual) 5.2 % Nucleated Red Blood Cells % 0.2 % Neutrophils # (Manual) 9.57 1.4-6.5 K/uL Total Absolute Neutrophils 9.57 1.4-6.5 K/uL Lymphocytes # (Manual) 2.56 1.2-3.4 K/uL Total Absolute Lymphocytes 2.56 1.2-3.4 K/uL Monocytes # (Manual) 0.67 0.11-0.59 K/uL Polychromasia 1+ Stomatocytes 1+ Sodium Level 138 136-145 mmol/L Potassium Level 4.0 3.5-5.1 mmol/L Chloride Level 102 98-107 mmol/L Carbon Dioxide Level 31 21-32 mmol/L Anion Gap 5.0 3-11 mmol/L Blood Urea Nitrogen 10 7-18 mg/dl Creatinine 0.55 0.60-1.20 mg/dl Est Creatinine Clear Calc Drug Dose 86.6 ml/min Estimated GFR () 114.9 Estimated GFR (Non- 99.1 BUN/Creatinine Ratio 18.5 10-20 Random Glucose 84 70-99 mg/dl Calcium Level 8.0 8.5-10.1 mg/dl Vancomycin Level Trough 16.7 SEE COMMENT mcg/ml
[2016-07-03 19:14] VITALS: PULSE 89; O2SAT 96
[2016-07-03] MEDS: MONTELUKAST SOD 10 MG TAB PO SCH (20:24)
[2016-07-03] MEDS: SIMVASTATIN 20 MG TAB PO SCH (20:24)
[2016-07-04] VITALS (11 sets, daily range): BP systolic 99–111; BP diastolic 63–70; PULSE 69–102; TEMP 36.3–37.1; O2SAT 91–95
[2016-07-04] MEDS: IPRATROPIUM BROMIDE NEB SOLN 0.02% 2.5 ML VIAL INH SCH ×4 (02:48→21:02)
[2016-07-04] MEDS: LEVALBUTEROL 1.25MG/0.5ML NEB INH SCH ×4 (02:48→21:02)
[2016-07-04] MEDS: VANCOMYCIN INJ 1,000 MG in SODIUM CHLORIDE 0.9% 250ML 250 ML IV SCH ×3 (03:52→19:51)
[2016-07-04] MEDS: LEVOTHYROXINE 125 MCG TAB PO SCH (06:03)
[2016-07-04 07:04] LABS: BASO % 0.4 %; BASO ABS # 0.05 K/uL (0-0.2); COMPLETE YES; HEMATOCRIT 30.7 % (37-47); IG% 4.2 %; LYMPH % 8.2 %; LYMPH ABS # 1.01 K/uL (1.2-3.4); MEAN CELL VOLUME 79.7 fL (80-100); MEAN CORPUSCULAR HEMOGLOBIN 24.4 pg (25-34); MEAN CORPUSCULAR HGB CONC 30.6 g/dl (32-36); MEAN PLATELET VOLUME 9.4 fL (7.4-10.4); MONO % 8.2 %; PLATELET COUNT 262 K/uL (130-400); RED BLOOD COUNT 3.85 M/uL (4.2-5.4); WHITE BLOOD COUNT 12.36 K/uL (4.8-10.8)
[2016-07-04 07:29] LABS: BUN/CREATININE RATIO 24.5 (10-20); CALCIUM 8.3 mg/dl (8.5-10.1); CREATININE 0.39 mg/dl (0.60-1.20)
[2016-07-04] MEDS: GUAIFENESIN 600 MG TABCR PO SCH ×2 (09:16→21:14)
[2016-07-04] MEDS: NICOTINE 7 MG/24 HR TDSY TD SCH (09:17)
[2016-07-04] MEDS: THEOPHYLLINE 300MG EXTENDED REL TAB PO SCH ×2 (09:17→21:14)
[2016-07-04] MEDS: FERROUS SULFATE 325 MG TAB PO SCH ×2 (09:17→21:14)
[2016-07-04] MEDS: MULTIVITAMIN TAB PO SCH (09:18)
[2016-07-04] MEDS: SERTRALINE HCL 100 MG TAB PO SCH (09:19)
[2016-07-04] MEDS: ENOXAPARIN 40 MG/0.4 ML SYR SC SCH (09:19)
[2016-07-04] MEDS: LISINOPRIL 5 MG TAB PO SCH (09:19)
[2016-07-04] MEDS: PANTOprazole SOD 40 MG TAB PO SCH ×2 (09:20→17:47)
--- NOTE | 2016-07-04 13:51 | PULMONARY PROGRESS NOTE ---
DATE: 07/04/2016 TIME: 1:05 p.m. SUBJECTIVE: The patient has no complaints. She is coughing some but not bringing up any phlegm. She does not feel short of breath. She has had no major issues in the past 24 hours. OBJECTIVE: VITAL SIGNS: She appeared comfortable. Temperature 36.8. Heart rate was 80 beats per minute. Blood pressure 111/70. LUNGS: Auscultation revealed diffuse rhonchi bilaterally. These might be slightly more prominent than yesterday. She states she is not expectorating any phlegm. I had her take some deep breaths with incentive spirometry and she did cough and it sounded loose. ABDOMEN: Soft and nontender. EXTREMITIES: Showed no edema. LABORATORY DATA: White count today is 12.36, hemoglobin 9.4, platelets 262,000. Electrolytes show sodium 139, potassium 4.0, chloride 103, bicarb 28. BUN was 10 with a creatinine of 0.39. IMPRESSIONS: 1. Pneumonia, right lower lobe and right upper lobe secondary to methicillin-resistant Staphylococcus aureus. 2. Chronic obstructive pulmonary disease exacerbation. 3. Nicotine addiction. 4. Right lower lobe nodule. COMMENTS AND RECOMMENDATIONS: The patient clinically is doing well although on auscultation, she sounds quite abnormal. Likewise, her x-ray yesterday was quite abnormal. We will order a flutter valve and see if this helps her with secretion clearance. We will decrease her prednisone, starting tomorrow. We will change her to 20 mg b.i.d. She remains on the vancomycin. Continue the nebulizer treatments.
--- NOTE | 2016-07-04 16:21 | ECHOCARDIOGRAM REPORT ---
*NOTICE TO RECEIVING DEMOCRAT AGENCY This information is strictly Confidential and protected under [place] law. [place] law prohibits you from making any further disclosure of this information unless further disclosure is expressly permitted by the written consent of the person to whom it pertains or is authorized by law. A general authorization for the release of medical or other information is not sufficient for this purpose. Hospital accepts no responsibility if the information is made available to any other person, INCLUDING THE PATIENT. Interpretation Summary * Name: JAMES VIRGEN Study Date: 07/04/2016 09:02 AM BP: 111/67 mmHg * Patient Location: C.MSN\S\N381\S\1 HR: 78 * : 1950 (M/d/yyyy) Gender: Female Height: 61 in * Age: 65 yrs Ethnicity: CA Weight: 134 lb * Ordering Physician: Fransisco Trujillo * Performed By: Lnidsey Morales * * Reason For Study: PERICARDIAL EFFUSION * BSA: 1.6 m2 * -- Conclusions -- * There is mild concentric left ventricular hypertrophy. * The left ventricular wall motion is normal. * The LV Ejection Fraction = 60-65%. * The right ventricle is normal size. * The right ventricular systolic function is normal as assessed by tricuspid annular plane systolic excursion (TAPSE) (normal >1.5 cm). * A small circumferential pericardial effusion is present. * There are no echocardiographic indications of cardiac tamponade. * Compared to the report from an outpatient echocardiogram performed at [facility] dated 05/28/14, a small circumferential pericardial effusion was noted at that time as well. Procedure Details * A complete two-dimensional transthoracic echocardiogram was performed (2D, M-mode, Doppler and color flow Doppler). Left Ventricle * The left ventricle is normal in size. * There is mild concentric left ventricular hypertrophy. * Left ventricular systolic function is normal. * Ejection Fraction = 60-65%. * The left ventricular wall motion is normal. Right Ventricle * The right ventricle is normal size. * The right ventricular systolic function is normal as assessed by tricuspid annular plane systolic excursion (TAPSE) (normal >1.5 cm). Atria * The left atrium is mildly dilated. * Right atrial size is normal. * There is no evidence of atrial septal defect, but resolution does not allow assessment for a patent foramen ovale. Mitral Valve * The mitral valve is normal. * There is no mitral valve stenosis. * Significant mitral regurgitation is absent. Tricuspid Valve * The tricuspid valve is normal. * There is no tricuspid stenosis. * Significant tricuspid regurgitation is absent. * Doppler findings do not suggest pulmonary hypertension. Aortic Valve * The aortic valve is trileaflet. * Aortic valve sclerosis mild, without significant aortic valvular stenosis. * Aortic stenosis is absent. * There is no significant aortic regurgitation. Pulmonic Valve * The pulmonary valve is not well seen, but the Doppler examination is normal without significant regurgitation or stenosis. Great Vessels * The aortic root and proximal ascending aorta are normal sized. Pericardium/Pleural * A small circumferential pericardial effusion is present. * There are no echocardiographic indications of cardiac tamponade. Great Vessels * Normal inferior vena cava diameter and respiratory variation suggests normal central venous pressure. * Normal inferior vena cava size and collapsability with sniff indicates a normal right atrial pressure of 3 mmHg Left Ventricular Diastolic Function * Grade I diastolic dysfunction, (abnormal relaxation pattern). MMode 2D Measurements and Calculations IVSd 1.1 cm IVSs 1.6 cm LVIDd 4.4 cm LVIDs 2.9 cm LVPWd 1.4 cm LVPWs 1.9 cm IVS/LVPW 0.80 FS 34.4 % EDV(Teich) 86.2 ml ESV(Teich) 31.3 ml EF(Teich) 63.7 % EDV(cubed) 83.3 ml ESV(cubed) 23.6 ml EF(cubed) 71.7 % % IVS thick 41.6 % % LVPW thick 33.8 % LV mass(C)d 209.4 grams LV mass(C)dI 131.5 grams/m\S\2 LV mass(C)s 198.9 grams LV mass(C)sI 124.9 grams/m\S\2 SV(Teich) 54.9 ml SI(Teich) 34.5 ml/m\S\2 SV(cubed) 59.8 ml SI(cubed) 37.5 ml/m\S\2 ACS 1.5 cm LA dimension 4.7 cm LVOT diam 2.1 cm LVOT area 3.5 cm\S\2 LVAd ap4 29.5 cm\S\2 LVLd ap4 7.5 cm EDV(MOD-sp4) 94.3 ml EDV(sp4-el) 98.5 ml LVAs ap4 16.3 cm\S\2 LVLs ap4 6.3 cm ESV(MOD-sp4) 34.5 ml ESV(sp4-el) 36.1 ml EF(MOD-sp4) 63.4 % EF(sp4-el) 63.3 % LVAd ap2 22.6 cm\S\2 LVLd ap2 6.6 cm EDV(MOD-sp2) 63.6 ml EDV(sp2-el) 66.0 ml LVAs ap2 11.4 cm\S\2 LVLs ap2 5.0 cm ESV(MOD-sp2) 22.5 ml ESV(sp2-el) 22.1 ml EF(MOD-sp2) 64.7 % EF(sp2-el) 66.5 % LVLd %diff -14.75 % EDV(MOD-bp) 82.5 ml LVLs %diff -25.49 % ESV(MOD-bp) 30.4 ml EF(MOD-bp) 63.1 % SV(MOD-sp4) 59.9 ml SI(MOD-sp4) 37.6 ml/m\S\2 SV(MOD-sp2) 41.1 ml SI(MOD-sp2) 25.8 ml/m\S\2 SV(MOD-bp) 52.1 ml SI(MOD-bp) 32.7 ml/m\S\2 SV(sp4-el) 62.3 ml SI(sp4-el) 39.1 ml/m\S\2 SV(sp2-el) 43.9 ml SI(sp2-el) 27.6 ml/m\S\2 Doppler Measurements and Calculations MV E max damian 80.1 cm/sec MV dec time 0.31 sec Ao V2 max 152.2 cm/sec Ao max PG 9.3 mmHg Ao max PG (full) 3.7 mmHg ANA MARIA(V,A) 2.7 cm\S\2 ANA MARIA(V,D) 2.7 cm\S\2 LV V1 max PG 5.6 mmHg LV V1 mean PG 2.2 mmHg LV V1 max 117.8 cm/sec LV V1 mean 66.0 cm/sec LV V1 VTI 30.2 cm SV(LVOT) 105.3 ml SI(LVOT) 66.1 ml/m\S\2 PA V2 max 73.9 cm/sec PA max PG 2.2 mmHg PI end-d damian 61.6 cm/sec TR max damian 215.7 cm/sec
--- NOTE | 2016-07-04 17:37 | Progress Note ---
Internal Med Progress Note Date of Service: Jul 04, 2016. Provider Documentation: SUBJECTIVE: Patient is interviewed and examined at bedside. States her cough, SOB is much improved. Denies any chest pain. OBJECTIVE: Vital Signs-as noted below General Appearance: WD/WN, no apparent distress Eyes: normal inspection, PERRL, EOMI, sclerae normal ENT: normal ENT inspection, hearing grossly normal, TMs normal, pharynx normal Neck: supple, no adenopathy, thyroid normal, no JVD, no carotid bruits, trachea midline Respiratory/Chest: chest non-tender, no respiratory distress, no accessory muscle use, + decreased breath sounds, Minimal wheezes heard Cardiovascular: regular rate, rhythm, no edema, no JVD, no murmur Abdomen: normal bowel sounds, non tender, soft, no organomegaly, no pulsatile mass Extremities: normal range of motion, non-tender, normal inspection, no pedal edema, no calf tenderness, normal capillary refill, pelvis stable 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 ASSESSMENT & PLAN: Patient is a 65 Yr F with PMH of COPD, AMIRAH, Tobacco use disorder, Hypothyroidism, Hyperlipidemia, Chronic anemia, H/O Gastric bypass, Pulmonary Nodule, H/O MRSA presented with cough with expectoration, fever, worsening SOB from baseline. Acute on Chronic Hypoxic respiratory failure and Sepsis: Secondary to MRSA Community acquired pneumonia (Right middle and lower lobe infiltrates) and COPD exacerbation Taper Prednisone to 20 mg BID in AM Leukocytosis stable Continue bronchodilators, oxygen support, Vancomycin Sputum Culture: MRSA, Blood cultures: No growth to date Appreciate pulmonary and ID help Plan to DC on Doxycycline 100 mg BID for 2 weeks Continue Vibration vest and Incentive Spirometry Repeat CXR: findings suggestive of pericardial effusion ECHO: minimal pericardial effusion which is seen from previous ECHO as well, EF:Normal Titrate off oxygen as able Right lower lobe lung nodule: Diagnosed in 2012 Stable follow up as outpatient Hypothyroidism: Continue Levothyroxine Hyperlipidemia: Continue simvastatin 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 S/O gastric Bypass: done in 2005 Stable H/O Sleep apnea: Currently well controlled after Gastric Bypass surgery and weight loss Stable Hypertension: Stable, Continue lisinopril DVT Px: Lovenox SQ Disposition: Plan to DC tomorrow Vital Signs: Date Time Temp Pulse Resp B/P Pulse Ox O2 Delivery O2 Flow Rate FiO2 07/04/16 15:20 37.1 102 17 108/68 92 Nasal Cannula 2.0 07/04/16 14:54 96 18 91 Nasal Cannula 2.0 07/04/16 11:22 36.8 80 16 111/70 95 Nasal Cannula 2.0 07/04/16 10:15 94 Nasal Cannula 2.0 07/04/16 09:25 Nasal Cannula 2.0 07/04/16 09:15 69 109/69 07/04/16 08:13 96 18 94 Nasal Cannula 2.0 07/04/16 07:53 36.6 69 15 99/63 94 Nasal Cannula 2.0 07/04/16 02:48 78 18 93 Nasal Cannula 2.0 07/04/16 00:05 36.3 74 18 111/67 93 2.0 07/03/16 20:00 Nasal Cannula 2.0 07/03/16 19:14 89 18 96 Nasal Cannula 2.0 Lab Results: Results Past 24 Hours Test 07/04/16 06:05 Range/Units White Blood Count 12.36 4.8-10.8 K/uL Red Blood Count 3.85 4.2-5.4 M/uL Hemoglobin 9.4 12.0-16.0 g/dL Hematocrit 30.7 37-47 % Mean Corpuscular Volume 79.7 80-100 fL Mean Corpuscular Hemoglobin 24.4 25-34 pg Mean Corpuscular Hemoglobin Concent 30.6 32-36 g/dl Platelet Count 262 130-400 K/uL Mean Platelet Volume 9.4 7.4-10.4 fL Neutrophils (%) (Auto) 79.0 % Lymphocytes (%) (Auto) 8.2 % Monocytes (%) (Auto) 8.2 % Eosinophils (%) (Auto) 0.0 % Basophils (%) (Auto) 0.4 % Neutrophils # (Auto) 9.77 1.4-6.5 K/uL Lymphocytes # (Auto) 1.01 1.2-3.4 K/uL Monocytes # (Auto) 1.01 0.11-0.59 K/uL Eosinophils # (Auto) 0.00 0-0.5 K/uL Basophils # (Auto) 0.05 0-0.2 K/uL RDW Standard Deviation 51.1 36.4-46.3 fL RDW Coefficient of Variation 17.7 11.5-14.5 % Immature Granulocyte % (Auto) 4.2 % Immature Granulocyte # (Auto) 0.52 0.00-0.02 K/uL Sodium Level 139 136-145 mmol/L Potassium Level 4.0 3.5-5.1 mmol/L Chloride Level 103 98-107 mmol/L Carbon Dioxide Level 28 21-32 mmol/L Anion Gap 8.0 3-11 mmol/L Blood Urea Nitrogen 10 7-18 mg/dl Creatinine 0.39 0.60-1.20 mg/dl Est Creatinine Clear Calc Drug Dose 122.2 ml/min Estimated GFR () 128.6 Estimated GFR (Non- 111.0 BUN/Creatinine Ratio 24.5 10-20 Random Glucose 104 70-99 mg/dl Calcium Level 8.3 8.5-10.1 mg/dl
[2016-07-04] MEDS: MONTELUKAST SOD 10 MG TAB PO SCH (21:14)
[2016-07-04] MEDS: SIMVASTATIN 20 MG TAB PO SCH (21:14)
[2016-07-04] MEDS ORDERED: HYDROmorphone INJ 0.5 MG/0.5 ML SYR IV PRN (23:15)
[2016-07-05] VITALS (7 sets, daily range): BP systolic 98–109; BP diastolic 61–69; PULSE 66–89; TEMP 36.8–37; O2SAT 92–98
[2016-07-05] MEDS: LEVALBUTEROL 1.25MG/0.5ML NEB INH SCH ×4 (02:32→20:52)
[2016-07-05] MEDS: IPRATROPIUM BROMIDE NEB SOLN 0.02% 2.5 ML VIAL INH SCH ×4 (02:32→20:52)
[2016-07-05] MEDS: VANCOMYCIN INJ 1,000 MG in SODIUM CHLORIDE 0.9% 250ML 250 ML IV SCH ×3 (03:53→20:02)
[2016-07-05] MEDS: LEVOTHYROXINE 125 MCG TAB PO SCH (05:59)
[2016-07-05 06:49] LABS: BASO % 0.2 %; BASO ABS # 0.03 K/uL (0-0.2); COMPLETE YES; HEMATOCRIT 29.1 % (37-47); LYMPH % 8.8 %; LYMPH ABS # 1.27 K/uL (1.2-3.4); MEAN CELL VOLUME 80.4 fL (80-100); MEAN CORPUSCULAR HEMOGLOBIN 24.9 pg (25-34); MEAN CORPUSCULAR HGB CONC 30.9 g/dl (32-36); MEAN PLATELET VOLUME 9.7 fL (7.4-10.4); MONO % 9.3 %; NEUT % 77.7 %; PLATELET COUNT 289 K/uL (130-400); RED BLOOD COUNT 3.62 M/uL (4.2-5.4); WHITE BLOOD COUNT 14.39 K/uL (4.8-10.8)
[2016-07-05 07:21] LABS: BUN/CREATININE RATIO 16.7 (10-20); CALCIUM 8.3 mg/dl (8.5-10.1); CREATININE 0.46 mg/dl (0.60-1.20); POTASSIUM 4.4 mmol/L (3.5-5.1)
[2016-07-05] MEDS: GUAIFENESIN 600 MG TABCR PO SCH ×2 (08:35→21:03)
[2016-07-05] MEDS: PANTOprazole SOD 40 MG TAB PO SCH ×2 (08:35→18:00)
[2016-07-05] MEDS: SERTRALINE HCL 100 MG TAB PO SCH (08:36)
[2016-07-05] MEDS: LISINOPRIL 5 MG TAB PO SCH (08:36)
[2016-07-05] MEDS: FERROUS SULFATE 325 MG TAB PO SCH ×2 (08:36→21:04)
[2016-07-05] MEDS: THEOPHYLLINE 300MG EXTENDED REL TAB PO SCH ×2 (08:37→21:05)
[2016-07-05] MEDS: MULTIVITAMIN TAB PO SCH (08:37)
[2016-07-05] MEDS: NICOTINE 7 MG/24 HR TDSY TD SCH (08:38)
[2016-07-05] MEDS: ENOXAPARIN 40 MG/0.4 ML SYR SC SCH (08:38)
--- NOTE | 2016-07-05 14:06 | Progress Note ---
Internal Med Progress Note Date of Service: Jul 05, 2016. Provider Documentation: SUBJECTIVE: Patient is interviewed and examined at bedside. Persistent cough with expectoration. Denies any chest pain, SOB. OBJECTIVE: Vital Signs-as noted below General Appearance: WD/WN, no apparent distress Eyes: normal inspection, PERRL, EOMI, sclerae normal ENT: normal ENT inspection, hearing grossly normal, TMs normal, pharynx normal Neck: supple, no adenopathy, thyroid normal, no JVD, no carotid bruits, trachea midline Respiratory/Chest: chest non-tender, no respiratory distress, no accessory muscle use, + decreased breath sounds, rhonchi and Minimal wheezes heard Cardiovascular: regular rate, rhythm, no edema, no JVD, no murmur Abdomen: normal bowel sounds, non tender, soft, no organomegaly, no pulsatile mass Extremities: normal range of motion, non-tender, normal inspection, no pedal edema, no calf tenderness, normal capillary refill, pelvis stable 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 ASSESSMENT & PLAN: Patient is a 65 Yr F with PMH of COPD, AMIRAH, Tobacco use disorder, Hypothyroidism, Hyperlipidemia, Chronic anemia, H/O Gastric bypass, Pulmonary Nodule, H/O MRSA presented with cough with expectoration, fever, worsening SOB from baseline. Acute on Chronic Hypoxic respiratory failure and Sepsis: Secondary to MRSA Community acquired pneumonia (Right middle and lower lobe infiltrates) and COPD exacerbation Continue Prednisone taper at 20 mg BID in AM Leukocytosis stable Continue bronchodilators, oxygen support, Vancomycin Sputum Culture: MRSA, Blood cultures: No growth to date Appreciate pulmonary and ID help Plan to DC on Doxycycline 100 mg BID for 2 weeks Continue Vibration vest and Incentive Spirometry Repeat CXR: findings suggestive of pericardial effusion ECHO: minimal pericardial effusion which is seen from previous ECHO as well, EF:Normal On 2l NC oxygen at baseline Right lower lobe lung nodule: Diagnosed in 2012 Stable follow up as outpatient Hypothyroidism: Continue Levothyroxine Hyperlipidemia: Continue simvastatin Tobacco use disorder: Current smoker [employer] to quit smoking Nicotine patch S/O gastric Bypass: done in 2005 Stable H/O Sleep apnea: Currently well controlled after Gastric Bypass surgery and weight loss Stable Hypertension: Stable, Continue lisinopril DVT Px: Lovenox SQ Disposition: Likely discharge tomorrow Vital Signs: Date Time Temp Pulse Resp B/P Pulse Ox O2 Delivery O2 Flow Rate FiO2 07/05/16 09:21 Nasal Cannula 2.0 07/05/16 08:05 79 18 92 Nasal Cannula 2.0 07/05/16 07:41 36.9 66 16 106/62 98 Room Air 07/05/16 02:33 89 18 95 Nasal Cannula 2.0 07/04/16 22:59 36.8 79 16 108/69 92 Nasal Cannula 3.0 07/04/16 20:00 Nasal Cannula 2.0 07/04/16 19:50 88 18 93 Nasal Cannula 2.0 07/04/16 15:20 37.1 102 17 108/68 92 Nasal Cannula 2.0 07/04/16 14:54 96 18 91 Nasal Cannula 2.0 Lab Results: Results Past 24 Hours Test 07/05/16 06:00 Range/Units White Blood Count 14.39 4.8-10.8 K/uL Red Blood Count 3.62 4.2-5.4 M/uL Hemoglobin 9.0 12.0-16.0 g/dL Hematocrit 29.1 37-47 % Mean Corpuscular Volume 80.4 80-100 fL Mean Corpuscular Hemoglobin 24.9 25-34 pg Mean Corpuscular Hemoglobin Concent 30.9 32-36 g/dl Platelet Count 289 130-400 K/uL Mean Platelet Volume 9.7 7.4-10.4 fL Neutrophils (%) (Auto) 77.7 % Lymphocytes (%) (Auto) 8.8 % Monocytes (%) (Auto) 9.3 % Eosinophils (%) (Auto) 0.0 % Basophils (%) (Auto) 0.2 % Neutrophils # (Auto) 11.17 1.4-6.5 K/uL Lymphocytes # (Auto) 1.27 1.2-3.4 K/uL Monocytes # (Auto) 1.34 0.11-0.59 K/uL Eosinophils # (Auto) 0.00 0-0.5 K/uL Basophils # (Auto) 0.03 0-0.2 K/uL RDW Standard Deviation 52.4 36.4-46.3 fL RDW Coefficient of Variation 17.8 11.5-14.5 % Immature Granulocyte % (Auto) 4.0 % Immature Granulocyte # (Auto) 0.58 0.00-0.02 K/uL Sodium Level 139 136-145 mmol/L Potassium Level 4.4 3.5-5.1 mmol/L Chloride Level 102 98-107 mmol/L Carbon Dioxide Level 31 21-32 mmol/L Anion Gap 6.0 3-11 mmol/L Blood Urea Nitrogen 8 7-18 mg/dl Creatinine 0.46 0.60-1.20 mg/dl Est Creatinine Clear Calc Drug Dose 103.6 ml/min Estimated GFR () 121.8 Estimated GFR (Non- 105.1 BUN/Creatinine Ratio 16.7 10-20 Random Glucose 115 70-99 mg/dl Calcium Level 8.3 8.5-10.1 mg/dl
[2016-07-05] MEDS ORDERED: ZOLPIDEM TARTRATE 5 MG TAB PO PRN (19:00)
[2016-07-05] MEDS: MONTELUKAST SOD 10 MG TAB PO SCH (21:05)
[2016-07-05] MEDS: SIMVASTATIN 20 MG TAB PO SCH (21:06)
[2016-07-06] VITALS (10 sets, daily range): BP systolic 95–113; BP diastolic 67; PULSE 71–91; TEMP 36.7–37; O2SAT 92–96
[2016-07-06] MEDS: IPRATROPIUM BROMIDE NEB SOLN 0.02% 2.5 ML VIAL INH SCH ×5 (02:27→19:55)
[2016-07-06] MEDS: LEVALBUTEROL 1.25MG/0.5ML NEB INH SCH ×5 (02:27→19:55)
[2016-07-06] MEDS: LEVOTHYROXINE 125 MCG TAB PO SCH (05:55)
[2016-07-06 06:37] LABS: HEMATOCRIT 29.5 % (37-47); MEAN CELL VOLUME 80.8 fL (80-100); MEAN CORPUSCULAR HEMOGLOBIN 24.9 pg (25-34); MEAN CORPUSCULAR HGB CONC 30.8 g/dl (32-36); MEAN PLATELET VOLUME 9.7 fL (7.4-10.4); PLATELET COUNT 315 K/uL (130-400); RED BLOOD COUNT 3.65 M/uL (4.2-5.4); WHITE BLOOD COUNT 15.93 K/uL (4.8-10.8)
[2016-07-06 06:59] LABS: BASO % 0.2 %; BASO ABS # 0.03 K/uL (0-0.2); COMPLETE YES; EOS % 0.1 %; IG% 4.6 %; LYMPH ABS # 1.43 K/uL (1.2-3.4); MONO % 9.4 %; NEUT % 76.7 %; POLYCHROMASIA 1+
[2016-07-06 07:05] LABS: BUN/CREATININE RATIO 19.5 (10-20); CALCIUM 8.5 mg/dl (8.5-10.1); CREATININE 0.51 mg/dl (0.60-1.20); POTASSIUM 4.1 mmol/L (3.5-5.1)
[2016-07-06] MEDS: ENOXAPARIN 40 MG/0.4 ML SYR SC SCH (08:18)
[2016-07-06] MEDS: LISINOPRIL 5 MG TAB PO SCH (08:18)
[2016-07-06] MEDS: NICOTINE 7 MG/24 HR TDSY TD SCH (08:19)
[2016-07-06] MEDS: GUAIFENESIN 600 MG TABCR PO SCH (08:19)
[2016-07-06] MEDS: SERTRALINE HCL 100 MG TAB PO SCH (08:20)
[2016-07-06] MEDS: FERROUS SULFATE 325 MG TAB PO SCH (08:20)
[2016-07-06] MEDS: THEOPHYLLINE 300MG EXTENDED REL TAB PO SCH (08:20)
[2016-07-06] MEDS: MULTIVITAMIN TAB PO SCH (08:20)
[2016-07-06] MEDS: PANTOprazole SOD 40 MG TAB PO SCH ×2 (08:21→18:18)
--- NOTE | 2016-07-06 10:39 | Pulmonology Progress Note ---
Pulmonary Progress Note Date of Service Jul 06, 2016. Attending Dr. Winston Subjective Feeling improved today. BM this AM. Ambulating the hallways without limiting dyspnea. Sleeping well, appetite in-tact. Using bedside spirometry QID. Cough productive of yellow-clear mucous. Objective 65-yo female hospital day # 8 admitted with exacerbation COPD with sputum + MRSA. PMHx includes: COPD (no PFTs available, [employer] Advair, Incruse, theophylline ), pulmonary nodule (7mm RLL), HTN, hypothyroid, HLD, anemia, h/o mRSA, untreated AMIRAH on nocturnal O2. Current tobacco use: 20-30 pack year. Patient admitted through [facility] ER 06/29/16 with productive cough, sepsis, COPD exacerbation. Sputum + MRSA. ABG 06/29/16: 7.49/33/72-4LPM/24. Influenza: negative. She was treated with Vancomycin, IV steroid and bronchodilators. CXR consistent with RLL patchy infiltrate. Repeat CXR 07/03/16: increased confluence of right sided infiltrative changes. Today: - 95-96%: 2LPM, attempting to wean to RA this AM - Afebrile, HD stable - Vanco Off: day #5, ID on board for dc with doxycycline - WBC: 15.93 (increased) - Prednisone: 40mg daily Physical Exam: Constitutional: well developed well nourished female sitting at bedside using incentive spirometer. No acute distress Head: + facial symmetry. Moist mucous membranes. Several abscent teeth. NO lesions/abscesses Respiratatory: Non-labored respirations. Loose cough on exam. Intermittent rales most prominent on left with scant wheeze on the right CV: Rapid rate, regular rhythm. No MRG. Warm and perfused peripherally wtih +2 DP and RP bilaterally MSK/Extremities: Moving and developed symmetrically. No peripheral edema. LE varicosities Integumentary: Tattoo lateral left calf Neurologic: A&O. Good data recall. Appropriate affect. Assessment & Plan 65-yo female admitted to [facility] with COPD exacerbation with sputum + MRSA. Clinically improving and transitioned to PO steroid well. WBC remains elevated on steroid with progression of patchy infiltrative changes on CXR. Antibiotic per ID reccs. Restart Advair today (order placed). Will obtain 2-view CXR today for better assessment of infiltrative change. Data Medications: Current Inpatient Medications Medications (Trade) Dose Ordered Sig/Kaycee Route Start Time Stop Time Status Last Admin Dose Admin Acetaminophen (Tylenol Tab) 650 mg Q6H PRN PO 06/29/16 02:15 07/29/16 02:14 06/29/16 23:44 650 MG Enoxaparin Sodium (Lovenox Inj) 40 mg Q24H SC 06/29/16 09:00 07/29/16 08:59 07/06/16 08:18 40 MG Nitroglycerin (Nitrostat Tab) 0.4 mg UD PRN SL 06/29/16 03:30 07/29/16 03:29 Guaifenesin (Mucinex Contr Rel Tab) 600 mg Q12 PO 06/29/16 21:00 07/29/16 20:59 07/06/16 08:19 600 MG Levothyroxine Sodium (Synthroid Tab) 125 mcg DAILYBB PO 06/29/16 06:30 07/29/16 06:59 07/06/16 05:55 125 MCG Lisinopril (Zestril Tab) 5 mg QAM PO 06/29/16 09:00 07/29/16 08:59 07/06/16 08:18 5 MG Montelukast Sodium (Singulair Tab) 10 mg HS PO 06/29/16 21:00 07/29/16 20:59 07/05/16 21:05 10 MG Multivitamins (Multivitamin Tab) 1 tab DAILY PO 06/29/16 09:00 07/29/16 08:59 07/06/16 08:20 1 TAB Sertraline HCl (Zoloft Tab) 150 mg QAM PO 06/29/16 09:00 07/29/16 08:59 07/06/16 08:20 150 MG Simvastatin (Zocor Tab) 20 mg QPM PO 06/29/16 21:00 07/29/16 20:59 07/05/16 21:06 20 MG Tramadol HCl (Ultram Tab) 50 mg Q6H PRN PO 06/29/16 03:30 07/29/16 03:29 07/02/16 19:52 50 MG Ferrous Sulfate (Feosol Tab) 325 mg BID PO 06/29/16 09:00 07/29/16 08:59 07/06/16 08:20 325 MG Pantoprazole Sodium (Protonix Tab) 40 mg BIDM PO 06/29/16 08:00 07/29/16 07:59 07/06/16 08:21 40 MG Polyethylene (Miralax Powder Packet) 17 gm DAILY PRN PO 06/29/16 03:30 07/29/16 03:29 Ondansetron HCl (Zofran Inj) 4 mg Q6H PRN IV 06/29/16 03:30 07/29/16 03:29 Theophylline (Adarsh-Dur Extended Rel Tab) 300 mg BID PO 06/29/16 09:00 07/29/16 08:59 07/06/16 08:20 300 MG Ipratropium [place] (Atrovent 0.02% 0.5MG/2.5ML Neb) 0.5 mg Q6R INH 06/29/16 09:00 07/29/16 08:59 07/06/16 07:35 0.5 MG Levalbuterol (Xopenex 1.25MG/ 0.5ML Neb) 1.25 mg Q6R INH 06/29/16 09:00 07/29/16 08:59 07/06/16 07:35 1.25 MG Ipratropium [place] (Atrovent 0.02% 0.5MG/2.5ML Neb) 0.5 mg Q4H PRN INH 06/29/16 03:45 07/29/16 03:44 Levalbuterol (Xopenex 1.25MG/ 0.5ML Neb) 1.25 mg Q4H PRN INH 06/29/16 03:45 07/29/16 03:44 Vancomycin HCl (Consult) 1 ea UD PRN N/A 06/29/16 04:30 07/29/16 04:29 Nicotine (Nicoderm Cq 7 Mg Patch) 1 patch QAM TD 06/29/16 09:00 07/29/16 08:59 07/06/16 08:19 1 PATCH Miscellaneous (Remove Nicoderm Patch) 1 ea HS N/A 06/29/16 21:00 07/29/16 20:59 07/05/16 21:06 1 EA Prednisone (PredniSONE TAB) 20 mg BID PO 07/05/16 09:00 08/04/16 08:59 07/06/16 08:19 20 MG Hydromorphone HCl (Dilaudid Inj) 0.5 mg Q3H PRN IV 07/04/16 23:15 07/18/16 23:14 07/04/16 23:15 0.5 MG Zolpidem Tartrate (Ambien Tab) 10 mg HS PRN PO 07/05/16 19:00 08/04/16 18:59 07/05/16 21:09 10 MG I & O: 24-Hour Column 07/06/16 08:00 Intake Total 1099 ml Balance 1099 ml Vital Signs: Date Time Temp Pulse Resp B/P Pulse Ox O2 Delivery O2 Flow Rate FiO2 07/06/16 08:00 Nasal Cannula 2.0 07/06/16 07:59 37.0 71 17 113/67 95 Nasal Cannula 2.0 07/06/16 07:35 81 16 96 Nasal Cannula 2.0 07/06/16 02:29 82 18 96 Nasal Cannula 2.0 07/05/16 23:50 Nasal Cannula 2.0 07/05/16 22:55 36.8 84 16 109/69 93 Nasal Cannula 2.0 07/05/16 20:40 88 18 96 Nasal Cannula 2.0 07/05/16 16:30 Nasal Cannula 2.0 07/05/16 15:22 37.0 81 18 98/61 96 Nasal Cannula 2.0 07/05/16 14:39 81 18 96 Nasal Cannula 2.0 Laboratory Results: Last 24 Hours Test 07/06/16 05:46 White Blood Count 15.93 K/uL Red Blood Count 3.65 M/uL Hemoglobin 9.1 g/dL Hematocrit 29.5 % Mean Corpuscular Volume 80.8 fL Mean Corpuscular Hemoglobin 24.9 pg Mean Corpuscular Hemoglobin Concent 30.8 g/dl Platelet Count 315 K/uL Mean Platelet Volume 9.7 fL Neutrophils (%) (Auto) 76.7 % Lymphocytes (%) (Auto) 9.0 % Monocytes (%) (Auto) 9.4 % Eosinophils (%) (Auto) 0.1 % Basophils (%) (Auto) 0.2 % Neutrophils # (Auto) 12.24 K/uL Lymphocytes # (Auto) 1.43 K/uL Monocytes # (Auto) 1.49 K/uL Eosinophils # (Auto) 0.01 K/uL Basophils # (Auto) 0.03 K/uL RDW Standard Deviation 52.8 fL RDW Coefficient of Variation 17.8 % Immature Granulocyte % (Auto) 4.6 % Immature Granulocyte # (Auto) 0.73 K/uL Polychromasia 1+ Sodium Level 139 mmol/L Potassium Level 4.1 mmol/L Chloride Level 102 mmol/L Carbon Dioxide Level 29 mmol/L Anion Gap 8.0 mmol/L Blood Urea Nitrogen 10 mg/dl Creatinine 0.51 mg/dl Est Creatinine Clear Calc Drug Dose 93.4 ml/min Estimated GFR () 117.8 Estimated GFR (Non- 101.6 BUN/Creatinine Ratio 19.5 Random Glucose 109 mg/dl Calcium Level 8.5 mg/dl
--- NOTE | 2016-07-06 13:02 | DIAGNOSTIC IMAGING REPORT ---
CHEST 2 VIEWS ROUTINE CLINICAL HISTORY: Acute respiratory failure. Infiltrate. COMPARISON STUDY: Chest radiograph July 03, 2016. FINDINGS: Moderate cardiomegaly is unchanged per there is no evidence of pulmonary edema. Linear left lower lung opacity suggestive of atelectasis. Right apical opacity persists. A 6.1 cm masslike opacity within the right lower lobe has slightly decreased in size since prior exam. IMPRESSION: 1. No significant change in the right apical opacity with slight improvement in the right lower lobe opacity since prior exam. The findings favor multifocal pneumonia. However, radiographic follow up to ensure resolution is recommended. 2. Moderate cardiomegaly without evidence of pulmonary edema. Electronically signed by: Jose Quiroz M.D. 07/06/2016 1:00 PM Dictated Date/Time: 07/06/2016 12:57 PM
--- NOTE | 2016-07-06 15:34 | Progress Note ---
Internal Med Progress Note Date of Service: Jul 06, 2016. Provider Documentation: SUBJECTIVE: Patient is interviewed and examined at bedside. She states her cough as much improved. Denies any new symptoms. Got repeat CXR today. OBJECTIVE: Vital Signs-as noted below General Appearance: WD/WN, no apparent distress Eyes: normal inspection, PERRL, EOMI, sclerae normal ENT: normal ENT inspection, hearing grossly normal, TMs normal, pharynx normal Neck: supple, no adenopathy, thyroid normal, no JVD, no carotid bruits, trachea midline Respiratory/Chest: chest non-tender, no respiratory distress, no accessory muscle use, + decreased breath sounds, minimal rhonchi heard Cardiovascular: regular rate, rhythm, no edema, no JVD, no murmur Abdomen: normal bowel sounds, non tender, soft, no organomegaly, no pulsatile mass Extremities: normal range of motion, non-tender, normal inspection, no pedal edema, no calf tenderness, normal capillary refill, pelvis stable 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: 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 ASSESSMENT & PLAN: Patient is a 65 Yr F with PMH of COPD, AMIRAH, Tobacco use disorder, Hypothyroidism, Hyperlipidemia, Chronic anemia, H/O Gastric bypass, Pulmonary Nodule, H/O MRSA presented with cough with expectoration, fever, worsening SOB from baseline. Acute on Chronic Hypoxic respiratory failure and Sepsis: Secondary to MRSA Community acquired pneumonia (Right middle and lower lobe infiltrates) and COPD exacerbation Continue Prednisone taper Leukocytosis secondary to prednisone Continue bronchodilators, oxygen support, Vancomycin Sputum Culture: MRSA, Blood cultures: No growth to date Appreciate pulmonary and ID help Plan to DC on Doxycycline 100 mg BID for 2 weeks Continue Vibration vest and Incentive Spirometry Repeat CXR today: Slight improvement in the RLL opacity ECHO: minimal pericardial effusion which is seen from previous ECHO as well, EF:Normal Currently saturating well on RA. 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 S/O gastric Bypass: done in 2005 Stable H/O Sleep apnea: Currently well controlled after Gastric Bypass surgery and weight loss Stable Hypertension: Stable, Continue lisinopril DVT Px: Lovenox SQ Disposition: Plan to discharge today Vital Signs: Date Time Temp Pulse Resp B/P Pulse Ox O2 Delivery O2 Flow Rate FiO2 07/06/16 14:49 87 16 96 Nasal Cannula 2.0 07/06/16 13:30 94 Room Air 07/06/16 10:58 93 Room Air 07/06/16 10:37 92 Room Air 07/06/16 10:27 95 Nasal Cannula 2.0 07/06/16 08:00 Nasal Cannula 2.0 07/06/16 07:59 37.0 71 17 113/67 95 Nasal Cannula 2.0 07/06/16 07:35 81 16 96 Nasal Cannula 2.0 07/06/16 02:29 82 18 96 Nasal Cannula 2.0 07/05/16 23:50 Nasal Cannula 2.0 07/05/16 22:55 36.8 84 16 109/69 93 Nasal Cannula 2.0 07/05/16 20:40 88 18 96 Nasal Cannula 2.0 07/05/16 16:30 Nasal Cannula 2.0 Lab Results: Results Past 24 Hours Test 07/06/16 05:46 Range/Units White Blood Count 15.93 4.8-10.8 K/uL Red Blood Count 3.65 4.2-5.4 M/uL Hemoglobin 9.1 12.0-16.0 g/dL Hematocrit 29.5 37-47 % Mean Corpuscular Volume 80.8 80-100 fL Mean Corpuscular Hemoglobin 24.9 25-34 pg Mean Corpuscular Hemoglobin Concent 30.8 32-36 g/dl Platelet Count 315 130-400 K/uL Mean Platelet Volume 9.7 7.4-10.4 fL Neutrophils (%) (Auto) 76.7 % Lymphocytes (%) (Auto) 9.0 % Monocytes (%) (Auto) 9.4 % Eosinophils (%) (Auto) 0.1 % Basophils (%) (Auto) 0.2 % Neutrophils # (Auto) 12.24 1.4-6.5 K/uL Lymphocytes # (Auto) 1.43 1.2-3.4 K/uL Monocytes # (Auto) 1.49 0.11-0.59 K/uL Eosinophils # (Auto) 0.01 0-0.5 K/uL Basophils # (Auto) 0.03 0-0.2 K/uL RDW Standard Deviation 52.8 36.4-46.3 fL RDW Coefficient of Variation 17.8 11.5-14.5 % Immature Granulocyte % (Auto) 4.6 % Immature Granulocyte # (Auto) 0.73 0.00-0.02 K/uL Polychromasia 1+ Sodium Level 139 136-145 mmol/L Potassium Level 4.1 3.5-5.1 mmol/L Chloride Level 102 98-107 mmol/L Carbon Dioxide Level 29 21-32 mmol/L Anion Gap 8.0 3-11 mmol/L Blood Urea Nitrogen 10 7-18 mg/dl Creatinine 0.51 0.60-1.20 mg/dl Est Creatinine Clear Calc Drug Dose 93.4 ml/min Estimated GFR () 117.8 Estimated GFR (Non- 101.6 BUN/Creatinine Ratio 19.5 10-20 Random Glucose 109 70-99 mg/dl Calcium Level 8.5 8.5-10.1 mg/dl
[2016-07-06] MEDS ORDERED: DOXY-300 PO (16:44)
[2016-07-06] MEDS ORDERED: PRED10TA PO (16:44)
--- NOTE | 2016-07-06 16:49 | Discharge Instructions ---
Discharge Instructions Admission Reason for Admission: Respiratory Failure, Acute Discharge Discharge Diagnosis / Problem: MRSA Community acquired pneumonia Discharge Goals Goal(s): Decrease discomfort, Improve function Activity Recommendations Activity Limitations: resume your previous activity Exercise/Sports Limitations: as tolerated . Instructions / Follow-Up Instructions / Follow-Up Follow up with on 07/13/16 at 11:10am Follow up with Sandip HUBBARD on 07/23/16 at 10:00am at [address], [place] Complete the antibiotic and steroid course as prescribed. Seek immediate medical attention if your symptoms worsen or reoccur. Current Hospital Diet Patient's current hospital diet: AHA Diet (Heart Healthy) Discharge Diet Recommended Diet: AHA Diet (Heart Healthy) Pending Studies Studies pending at discharge: no Medical Emergencies . Who to Call and When: Medical Emergencies: If at any time you feel your situation is an emergency, please call 911 immediately. . Non-Emergent Contact Non-Emergency issues call your: Primary Care Provider, Administration Dean Call Non-Emergent contact if: you have a fever, you have any medication questions . . "Provider Documentation" section prepared by Fransisco Trujillo. VTE Core Measure Inpt VTE Proph given/why not?: Enoxaparin (Lovenox)SQ
[2016-07-06] MEDS ORDERED: FLUTICASONE/SALMETEROL 250/50 (ADVAIR) 14 PUFF/1 INHALER INH SCH (21:00)
--- NOTE | 2016-07-06 22:16 | Discharge Summary ---
Discharge Summary Admission Date: Jun 29, 2016 at 03:08 Discharge Date: Jul 06, 2016 Discharge Disposition: Home Principal Diagnosis: MRSA Community acquired pneumonia Secondary Diagnoses/Problems: Acute hypoxic respiratory failure, Acute COPD exacerbation, Hypothyroidism, Hyperlipidemia, Tobacco use disorder Procedures: CXR: 1. Patchy density within the right lower lobe. This may represent atelectasis or pneumonia. Recommend one month chest x-ray follow-up to ensure resolution. 2. Stable mild cardiomegaly. Repeat CXR: 1. No significant change in the right apical opacity with slight improvement in the right lower lobe opacity since prior exam. The findings favor multifocal pneumonia. However, radiographic follow up to ensure resolution is recommended. 2. Moderate cardiomegaly without evidence of pulmonary edema. Consultations: Pulmonology Medication Reconciliation New Medications: Doxycycline (Monohydrate) (Doxycycline) 100 Mg Cap 100 MG PO BID for 14 Days, #28 Prednisone Tab (Prednisone) 10 Mg Tab 10 MG PO DIRECTED, #20 TAB Start taking 3 tablets by mouth daily for 3 days then 2 tablets by mouth daily for 3 days and then 1 tanlet by mouth daily for 3 days and stop Continued Medications: Albuterol (Proair Hfa) Aers 2 PUFFS INH QID PRN Albuterol Soln (Ventolin Soln) 0.083 % Neb 1 AMP INH Q4HR PRN, #1 BOX PRN SHORTNESS OF BREATH/WHEEZING Calcium Citrate-Vitamin D (Calcium Citrate + D3 200-250 mg-Unit) 1 Tab Tab 1 TAB PO BID Cholecalciferol (Vitamin D3) 1,000 Unit Tab 1000 UNITS PO DAILY Cyclobenzaprine Hcl (Flexeril) 5 Mg Tab 5 MG PO TID PRN for SPASMS, TAB PRN Ferrous Sulfate (Iron Supplement) 325 Mg Tab 325 MG PO BID Fluticasone Prop/Salmeterol (Advair Diskus 250/50 Mcg *) Aerp 1 PUFF INH BID, 0 Refills Levothyroxine Sodium (Levothyroxine Sodium) 125 Mcg Tab 125 MCG PO DAILY, 3 Refills Lisinopril (Zestril) 5 Mg Tab 5 MG PO QAM, 0 Refills Montelukast (Singulair *) 10 Mg Tab 10 MG PO HS, 0 Refills Multivitamin (Multivitamin) Tab 1 TAB PO DAILY, TAB Omeprazole (Prilosec) 20 Mg Capcr 20 MG PO BIDM, 0 Refills Polyethylene Glycol 3350 (Miralax) 1 Pow Pow 17 GM PO DAILY PRN for Constipation Sertraline (Zoloft) 100 Mg Tab 150 MG PO QAM Simvastatin (Zocor) 20 Mg Tab 20 MG PO QPM, 0 Refills Theophylline Ext Rel (Adarsh-Dur Ext Rel) 300 Mg Tabcr 300 MG PO BID, 0 Refills Tramadol (Ultram) 50 Mg Tab 50 MG PO Q6H PRN for Pain, TAB Umeclidinium [place] (Incruse Ellipta) 62.5 Mcg/Inh Inh 1 PUFF INH DAILY Zolpidem Tartrate (Zolpidem Tartrate) 5 Mg Tab 10 MG PO HS PRN for Sleep Discontinued Medications: Levofloxacin (Levaquin) 500 Mg Tab 500 MG PO DAILY/UD/PRN for 7 Days, TAB Admission Information HPI (per Admitting provider): CHIEF COMPLAINT: Cough, shortness of breath. History obtained from patient and records. HISTORY OF PRESENT ILLNESS: Medical history is significant for chronic respiratory failure secondary to COPD , ongoing tobacco abuse, sleep apnea as per records, history of gastric bypass, pulmonary nodules, hypertension, hyperlipidemia, hypothyroidism, history of MRSA as per records. chronic anemia (baseline hemoglobin of 10). Recent confinement June 2012 for COPD exacerbation. One-day history of productive cough symptoms, unable to expectorate, admits to some sick contacts. Denies aspiration. No cp. Patient had a fever as well. At the Emergency Room, the patient received Levaquin, Zosyn, Solu-Medrol for sepsis and COPD exacerbation. Physical Exam (per Admitting): PHYSICAL EXAMINATION: VITAL SIGNS: Blood pressure was noted to be 134/74, pulse rate 110, RR 22, temperature 37.6, sats 97% on mask GEB : respiratory distress, slightly anxious, chronically ill. Looks older for stated age. SKIN : pallor HEENT: Pale palpebral conjunctivae. Dry mucosa. NECK: No JVD. supple CHEST: Expiratory wheezes, more on the right. HEART: Tachycardic. ABDOMEN: Soft. NT EXTREMITIES: No edema, no tenderness. NEUROLOGIC: No gross focality. Hospital Course Patient is a 65 Yr F with PMH of COPD, AMIRAH, Tobacco use disorder, Hypothyroidism, Hyperlipidemia, Chronic anemia, H/O Gastric bypass, Pulmonary Nodule, H/O MRSA presented with cough with expectoration, fever, worsening SOB from baseline. CXR findings were suggestive of pneumonia and chronic emphysematous changes. Patient grew MRSA in her sputum. Patient was diagnosed to have MRSA CAP and acute COPD exacerbation. ID and Pulmnology were involved in the management of the patient. Patient was treated with IV Vancomycin and later switched to PO Doxycycline per recommendations from ID. Also her COPD was treated with bronchodilators, oxygen support and glucocorticoids. Patient improved clinically and was discharged home in stable condition. Acute on Chronic Hypoxic respiratory failure and Sepsis: Secondary to MRSA Community acquired pneumonia (Right middle and lower lobe infiltrates) and COPD exacerbation Continue Prednisone taper Leukocytosis secondary to prednisone Continue bronchodilators, oxygen support, Vancomycin Sputum Culture: MRSA, Blood cultures: No growth to date Appreciate pulmonary and ID help Plan to DC on Doxycycline 100 mg BID for 2 weeks Continue Vibration vest and Incentive Spirometry Repeat CXR today: Slight improvement in the RLL opacity ECHO: minimal pericardial effusion which is seen from previous ECHO as well, EF:Normal Currently saturating well on RA. 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 Discharge Instructions Discharge Instructions Admission Reason for Admission: Respiratory Failure, Acute Discharge Discharge Diagnosis / Problem: MRSA Community acquired pneumonia Discharge Goals Goal(s): Decrease discomfort, Improve function Activity Recommendations Activity Limitations: resume your previous activity Exercise/Sports Limitations: as tolerated . Instructions / Follow-Up Instructions / Follow-Up Follow up with on 07/13/16 at 11:10am Follow up with Sandip HUBBARD on 07/23/16 at 10:00am at [address] [facility] [place] Complete the antibiotic and steroid course as prescribed. Seek immediate medical attention if your symptoms worsen or reoccur. Current Hospital Diet Patient's current hospital diet: AHA Diet (Heart Healthy) Discharge Diet Recommended Diet: AHA Diet (Heart Healthy) Pending Studies Studies pending at discharge: no Medical Emergencies . Who to Call and When: Medical Emergencies: If at any time you feel your situation is an emergency, please call 911 immediately. . Non-Emergent Contact Non-Emergency issues call your: Primary Care Provider, Adjunct Psychology Professor Call Non-Emergent contact if: you have a fever, you have any medication questions . . "Provider Documentation" section prepared by Fransisco Trujillo. VTE Core Measure Inpt VTE Proph given/why not?: Enoxaparin (Lovenox)SQ
== END 2016-07-06 20:00 | disposition home or self-care (01) | DRG 871 ==
LOC: ENRESERVDT → ENRESERVTM → CANRESERV → EDBD 00:26 → C.EDA 00:27 → UNDOADMIN 03:08 → C.MED 03:08 → C.MSN 22:49 → C.MED 22:49
PROVIDERS: ADMIT Internal Medicine; ATTEND Internal Medicine
DX: A41.9 Sepsis, unspecified organism (principal); J15.212 Pneumonia due to Methicillin resistant Staphylococcus aureus; J96.21 Acute and chronic respiratory failure with hypoxia; J44.1 Chronic obstructive pulmonary disease with (acute) exacerbation; I31.3 Pericardial effusion (noninflammatory); R65.20 Severe sepsis without septic shock; E03.9 Hypothyroidism, unspecified; G47.33 Obstructive sleep apnea (adult) (pediatric); R91.1 Solitary pulmonary nodule; E78.00 Pure hypercholesterolemia, unspecified; E78.5 Hyperlipidemia, unspecified; I10 Essential (primary) hypertension; F17.210 Nicotine dependence, cigarettes, uncomplicated; T38.0X5A Adverse effect of glucocorticoids and synthetic analogues, initial encounter; D72.829 Elevated white blood cell count, unspecified; F41.9 Anxiety disorder, unspecified; G47.00 Insomnia, unspecified; D50.8 Other iron deficiency anemias; M47.9 Spondylosis, unspecified; Z98.84 Bariatric surgery status; Z79.899 Other long term (current) drug therapy; Z79.52 Long term (current) use of systemic steroids; Z79.51 Long term (current) use of inhaled steroids

== ENCOUNTER 2016-07-30 06:17 | Day surgery (SDC) | payer OTHER ==
[2016-07-23 13:10] LABS: BASO % 0.1 %; BASO ABS # 0.01 K/uL (0-0.2); COMPLETE YES; EOS % 0.6 %; HEMATOCRIT 33.7 % (37-47); IG% 0.2 %; LYMPH % 22.7 %; LYMPH ABS # 1.91 K/uL (1.2-3.4); MEAN CELL VOLUME 80.6 fL (80-100); MEAN CORPUSCULAR HEMOGLOBIN 24.6 pg (25-34); MEAN CORPUSCULAR HGB CONC 30.6 g/dl (32-36); MEAN PLATELET VOLUME 10.1 fL (7.4-10.4); MONO % 8.7 %; NEUT % 67.7 %; PLATELET COUNT 222 K/uL (130-400); RED BLOOD COUNT 4.18 M/uL (4.2-5.4); WHITE BLOOD COUNT 8.41 K/uL (4.8-10.8)
[2016-07-23 13:22] LABS: INR 0.9 (0.9-1.1); PROTHROMBIN TIME (PATIENT) 9.6 SECONDS (9.0-12.0)
[2016-07-23 13:46] LABS: ALT/SGPT 11 U/L (12-78); AST/SGOT 10 U/L (15-37); BLOOD UREA NITROGEN 8 mg/dl (7-18); BUN/CREATININE RATIO 16.2 (10-20); CALCIUM 8.9 mg/dl (8.5-10.1); CARBON DIOXIDE 24 mmol/L (21-32); CHLORIDE 107 mmol/L (98-107); GLUCOSE 84 mg/dl (70-99); POTASSIUM 4.1 mmol/L (3.5-5.1); SODIUM 140 mmol/L (136-145)
[2016-07-23 13:49] LABS: ALB/GLOB RATIO 0.9 (0.9-2); ALKALINE PHOSPHATASE 74 U/L (45-117)
[~2016-07-30] VITALS: Ht 152.4 cm; Wt 60.0 kg
[2016-07-30] VITALS (13 sets, daily range): BP systolic 97–133; BP diastolic 58–77; PULSE 67–82; TEMP 36.8–36.9; O2SAT 93–98; Ht 152.4 cm; Wt 60.0 kg
[~2016-07-30 06:17] MED LIST changes: +CALC-494 PO; -CALC-51 PO; +CHOL1000 PO; +CYCL5TAB PO; +DOXY-300 PO; -LEVO100T7 PO; +LEVO125T4 PO; +MULT-506 PO; +POLY335019 PO; -SUMA100T16 PO; -TIOTCAP INH; +TRAM-10 PO; +UMEC1INH INH
[2016-07-30] MEDS ORDERED: LEVALBUTEROL 1.25MG/3ML NEB INH ONE (06:18)
[2016-07-30] MEDS ORDERED: LIDOCAINE HCL 2% LOCAL 50ML VIAL INFIL ONE (06:18)
[2016-07-30] MEDS ORDERED: LIDOCAINE 4% W/AFRIN NASAL SOLN 4ML ONE (06:18)
[2016-07-30] MEDS ORDERED: MIDAZOLAM HCL 5 MG/ML 1 ML VIAL IV ONE ×2 (06:18→09:00)
[2016-07-30] MEDS ORDERED: FENTANYL CITRATE INJ 50 MCG/1 ML 2 ML VIAL IV ONE ×2 (06:18→09:00)
--- NOTE | 2016-07-30 07:54 | History & Physical Bridge Note ---
H&P Re-Evaluation Bridge Note: I have examined the patient, reviewed the History & Physical and in the interval since the performance of the History & Physical I have noted the following changes of clinical significance: No changes noted
--- NOTE | 2016-07-30 07:55 | Procedure Note ---
Pre-Mod Sedation Assessment General Date of Moderate Sedation: Jul 30, 2016. Vital Signs: Vital Signs Past 12 Hours Date Time Temp Pulse Resp B/P Pulse Ox O2 Delivery O2 Flow Rate FiO2 07/30/16 07:19 36.8 72 20 133/70 95 Room Air Pre-Sedation Airway Assessment Oral Cavity: WNL Smoking Status: Current Some Day Smoker Mallampati Classification: Class II ASA Classification: Class II Procedure Planning Contraindications-for Mod Sed: None Yes Notes The planned sedation has been discussed with the patient and consent obtained. I have identified the patient, determined the appropriateness of sedation and have assessed the patient immediately prior to the procedure. All medicine(s) and interventions are by my order.
[2016-07-30] MEDS ORDERED: NURSING VERBAL MED ORDER ONE ×2 (08:00→08:45)
[2016-07-30] MEDS ORDERED: DEXTROSE 5% 1000ML 1,000 ML IV ONE (09:45)
--- NOTE | 2016-07-30 10:03 | Discharge Instructions ---
Discharge Instructions Visit Reason for Visit: Copd, Pulmonary Nodule Discharge Discharge Diagnosis / Problem: COPD Discharge Goals Goal(s): Diagnostic testing Activity Recommendations Activity Limitations: resume your previous activity Anesthesia . Post Anesthesia Instructions: If you have had General Anesthesia or IV Sedation: * Do not drive today. * Resume driving when surgeon permits. * Do not make important decisions or sign legal documents today. * Call surgeon for: 1. Temperature elevations greater than 101 degrees F. 2. Uncontrollable pain. 3. Excessive bleeding. 4. Persistent nausea and vomiting. 5. Medication intolerance (nausea, vomiting or rash). * For nausea and vomiting use only clear liquids such as: tea, soda, bouillon until nausea subsides, then gradually increase diet as tolerated. * If you have any concerns or questions, call your surgeon's office. If physician is unavailable and it is an emergency, call 911 or go to the nearest emergency room. . Instructions / Follow-Up Instructions / Follow-Up ACTIVITY RECOMMENDATIONS: * Rest today, resume normal activity tomorrow. * Do not drive today. SPECIAL CARE INSTRUCTIONS: * Call your physician if you experience any chest or shoulder pain, fever, coughing, spitting up blood (more than 2 teaspoons) or excessive shortness of breath. * Remove dressing from IV site (where needle was placed into the vein) after 2 hours. Apply a warm, moist compress to site if irritation occurs. Call physician if site becomes red or painful to touch. * You may eat 4 hours after the completion of your procedure * Resume all usual medications as previously directed FOLLOW UP VISIT: * Keep any scheduled doctor appointments. Diet Recommendations Recommended Home Diet: resume previous diet Procedures Procedures Performed: Bronchoscopy Pending Studies Studies pending at discharge: yes List of pending studies: Bronchoscopy washing Medical Emergencies . Who to Call and When: Medical Emergencies: If at any time you feel your situation is an emergency, please call 911 immediately. . Non-Emergent Contact Non-Emergency issues call your: Primary Care Provider . . "Provider Documentation" section prepared by Sandip Garcia PA-C.
--- NOTE | 2016-07-30 10:57 | OPERATIVE REPORT ---
DATE OF OPERATION: 07/30/2016 PROCEDURE: Fiberoptic bronchoscopy with bronchoalveolar lavage. INDICATIONS: COPD/mucoid impaction. ANESTHESIA PREOPERATIVELY: None. ANESTHESIA DURING PROCEDURE: 4 mg IV Versed, 50 mcg IV fentanyl, 20 mL 2% Xylocaine spray above and below the cords, 4% viscous Xylocaine intranasally. PROCEDURE IN DETAIL: Fiberoptic bronchoscope was inserted into the left naris with minimal difficulty and passed to the level of the true vocal cords. The cords appeared to approximate normally with phonation without evidence of lesions or paralysis. The area was anesthetized with 2% Xylocaine spray and the scope was then introduced in the trachea and right and left tracheobronchial tree. A small area of subglottic stenosis was noted, not felt to be clinically significant. No lesions were seen. The scope was advanced to the level of the fuad which appeared sharp and then the right mainstem bronchus was explored initially. No obvious endobronchial lesion was seen. The right upper lobe, the apical posterior and anterior segments, bronchus intermedius, right middle lobe, the medial and lateral segments and all basilar segments of right lower lobe were found to be free of endobronchial lesions. A moderate amount of mucoviscous secretion was lavaged from virtually all lobar and segmental bronchi until clear. Mucous pitting was prominently displayed throughout the right tracheobronchial tree. Left tracheobronchial tree showed similar findings with no endobronchial lesions. Left upper lobe, lingular subdivision and left lower lobe were free of endobronchial lesions down to the subsegmental bronchi but numerous areas of segmental occlusion with thick mucoviscous secretion was noted throughout the left lower lobe, segmental bronchi and these areas were copiously lavaged with Normosol and the aspirate sent for appropriate studies. The patient tolerated the procedure well. No brushings or biopsies were deemed necessary. The procedure was terminated. The patient was given a nebulizer treatment with Xopenex 1.25 mg and transferred to the medical treatment unit hemodynamically stable with no signs of respiratory compromise. We will await microbiological and cytologic examination of the bronchial washings. I attest to the content of the Intraoperative Record and any orders documented therein. Any exceptio ns are noted below.
[2016-08-26 12:37] LABS: HERPES SIMPLEX CULT SOURCE RESPIRATORY-R/L TRAC; HERPES SIMPLEX VIRUS CULT NOT ISOLATED (NOT ISOLATED)
== END 2016-07-30 10:59 | disposition home or self-care (01) ==
LOC: C.ACU 06:17
PROVIDERS: ATTEND Internal Medicine Pulmonary Disease
DX: J44.9 Chronic obstructive pulmonary disease, unspecified (principal); J98.11 Atelectasis; J41.1 Mucopurulent chronic bronchitis; B37.9 Candidiasis, unspecified; J20.9 Acute bronchitis, unspecified; Z83.3 Family history of diabetes mellitus; Z98.890 Other specified postprocedural states

== ENCOUNTER → 2016-08-03 | Outpatient (CLI) | payer OTHER ==
[~2016-08-03] MED LIST changes: +ADVIN25/60 INH; +ALBINS/ NEB; +ALBU18002 INH; -ALBU1AER9 INH; -DOXY-300 PO; +IMT100 PO; +LSN5 PO; +OXYC-57 PO; +PEDI1CHW82 PO; +ULT/50 PO
--- NOTE | 2016-08-03 08:51 | DIAGNOSTIC IMAGING REPORT ---
(BARIUM SWALLOW) ESOPHAGUS CLINICAL HISTORY: Candidiasis. Gastric surgery. COMPARISON STUDY: None FLUOROSCOPY TIME: 0.7 minutes. FINDINGS: Note was made of several episodes of silent tracheal aspiration. Therefore, this exam was not completed. Evaluation of the esophagus was suboptimal but no significant abnormality was identified. Post surgical findings involving the stomach are partially imaged on this exam. A barium tablet was not administered due to aspiration. No esophageal mass or stricture was identified. 18 fluoroscopic images were obtained. IMPRESSION: Mild to moderate tracheal aspiration. Therefore, this exam was not completed but no significant abnormality of the esophagus was identified. A modified barium swallow could be obtained to further evaluate the swallowing mechanism. Electronically signed by: Jose Quiroz M.D. 08/03/2016 8:50 AM Dictated Date/Time: 08/03/2016 8:46 AM
== END | disposition home or self-care (01) ==
LOC: C.RAD 08:27
PROVIDERS: ATTEND Internal Medicine Pulmonary Disease
DX: B37.9 Candidiasis, unspecified (principal)

== ENCOUNTER 2016-11-01 10:01 | Emergency (ER) | payer OTHER ==
[~2016-11-01] VITALS: Ht 160 cm; Wt 61.5 kg
[~2016-11-01 10:01] MED LIST changes: -ADVIN25/60 INH; -ALBINS/ NEB; -ALBU18002 INH; -IMT100 PO; -LEVO125T4 PO; +LEVO125T5 PO; -LSN5 PO; -OXYC-57 PO; -PEDI1CHW82 PO; -THEO1TAB14 PO; +THEO300T14 PO; -ULT/50 PO
[2016-11-01 10:03] VITALS: TEMP 36.6; Ht 160 cm; Wt 61.5 kg
[2016-11-01] MEDS ORDERED: ADVIN25/60 INH (10:23)
[2016-11-01] MEDS ORDERED: SNG10 PO (10:23)
[2016-11-01] MEDS ORDERED: LSN5 PO (10:23)
[2016-11-01] MEDS ORDERED: PEDI1CHW82 PO (10:23)
[2016-11-01] MEDS ORDERED: ULT/50 PO (10:24)
[2016-11-01] MEDS ORDERED: IMT100 PO (10:24)
[2016-11-01] MEDS ORDERED: SODIUM CHLORIDE 0.9% 1000ML 1,000 ML IV STA (10:25)
[2016-11-01] MEDS ORDERED: MoRPHine SULFATE 4 MG/ML 1 ML CARP\\VIAL IV STA ×2 (10:25→12:04)
[2016-11-01] MEDS ORDERED: ONDANSETRON INJ 2 MG/ML 2 ML VIAL IV STA (10:25)
[2016-11-01] MEDS ORDERED: ALBINS/ NEB (10:26)
[2016-11-01] MEDS ORDERED: ALBU18002 INH (10:26)
--- NOTE | 2016-11-01 10:31 | EMERGENCY ROOM VISIT NOTE ---
History Report prepared by Juanita: Fidencio Tang Under the Supervision of: Dr. Dougie Penaloza M.D. First contact with patient: 10:10 Chief Complaint: FALL Stated Complaint: EYE PAIN, FELL DOWN STAIRS BACKWARDS History of Present Illness The patient is a 66 year old female who presents to the Emergency Room with complaints of a fall that occurred last night. She rates her pain a 5/10 in severity. The patient was walking up her stairs when she lost her balance. She fell forwards onto the stairs and hit her face. Her right eye is swollen and causing her pain. She then fell down another time while she was walking up the stairs again. However, this time she fell backwards and slid down the stairs on her back. She states that she loses her balance occasionally and did not experience any weakness. She is not on any blood thinners. She denies any loss of consciousness. Source of History: patient Onset: last night Position: head, back (upper), leg (bilateral) Symptom Intensity: 5/10 Quality: ache Timing: constant Associated Symptoms: No LOC, No weakness Note: She has right eye pain. Review of Systems See HPI for pertinent positives & negatives. A total of 10 systems reviewed and were otherwise negative. Past Medical & Surgical Medical Problems: (1) COPD, moderate (2) Degenerative disc disease, lumbar (3) Depression (4) Dyslipidemia (5) Endometriosis (6) Generalized osteoarthritis (7) HTN (hypertension) (8) Hypothyroidism (9) Migraine (10) AMIRAH (obstructive sleep apnea) (11) Tobacco abuse (12) Venous insufficiency Surgical Problems: (1) Gastric bypass status for obesity (2) H/O umbilical hernia repair (3) History of section (4) History of partial gastrectomy (5) History of tubal ligation Family History Diabetes mellitus Heart disease Hypertension Social History Smoking Status: Current Every Day Smoker Alcohol Use: none Drug Use: none Marital Status: single Occupation Status: employed Current/Historical Medications Scheduled Calcium Citrate-Vitamin D (Calcium Citrate + D3 200-250 mg-Unit), 1 TAB PO BID Cholecalciferol (Vitamin D3), 1,000 UNITS PO DAILY Fluticasone Prop/Salmeterol (Advair Diskus 250/50 60 Dose), 1 PUFF INH BID Levothyroxine Sodium (Levothyroxine Sodium), 125 MCG PO DAILY Lisinopril (Lisinopril), 5 MG PO DAILY Montelukast Sod (Montelukast Sodium), 10 MG PO DAILY Omeprazole (Prilosec), 20 MG PO BIDM Pediatric Multiple Vitamin W/ (Flintstones Gummies Compl), 1 TAB PO BID Sertraline (Zoloft), 150 MG PO QAM Simvastatin (Zocor), 20 MG PO QPM Sumatriptan Succinate (Imitrex), 100 MG PO UD Theophylline Ext Rel (Adarsh-Dur Ext Rel), 300 MG PO BID Umeclidinium [place] (Incruse Ellipta), 1 PUFF INH DAILY Scheduled PRN Albuterol Sulf (Proventil 0.083% 2.5MG/3ML), 1 VIAL NEB Q4 PRN for SOB/Wheezing Albuterol Sulfate (Proair Respiclick), 2 PUFF INH Q4 PRN for SOB/Wheezing Cyclobenzaprine Hcl (Flexeril), 5 MG PO TID PRN for SPASMS Oxycodone/Acetaminophen 5MG/325MG (Percocet 5MG/325MG), 1-2 TAB PO Q4H PRN for Pain Polyethylene Glycol 3350 (Miralax), 17 GM PO DAILY PRN for Constipation Tramadol (Ultram), 50 MG PO Q6H PRN for Pain Tramadol Hcl (Ultram), 50 MG PO Q6 PRN for Pain Zolpidem Tartrate (Zolpidem Tartrate), 10 MG PO HS PRN for Sleep Allergies Coded Allergies: Cephalexin (Verified Allergy, Intermediate, ITCHY, 11/01/16) Physical Exam Vital Signs Date Time Temp Pulse Resp B/P Pulse Ox O2 Delivery O2 Flow Rate FiO2 11/01/16 12:18 71 17 105/65 92 Room Air 11/01/16 12:14 69 11/01/16 12:00 72 14 97/59 93 Room Air 11/01/16 10:53 75 11/01/16 10:43 95 Room Air 11/01/16 10:43 72 18 91/60 95 Room Air 11/01/16 10:43 95 Room Air 11/01/16 10:03 36.6 89 20 118/75 96 Room Air Physical Exam GENERAL: Patient is a healthy-appearing well-nourished HEAD: Normocephalic, hematoma around the right eye with some edema. EYES: Ocular movements intact pupils equal and react to light OROPHARYNX mucous membranes are moist no exudates present no erythema or edema present NECK: Supple no nuchal rigidity CHEST: Good equal expansion LUNGS: Clear and equal to auscultation CARDIAC: Normal S1 and S2 ABDOMEN: Soft nontender no guarding BACK: No CVA tenderness EXTREMITIES: There is an abrasion to the right anterior shore 1in x 2in, and an abrasion to the left anterior shore the size of a quarter. NEURO: Patient is following commands is answering questions appropriately. Alert and oriented x3 Cranial Nerves 2-12 grossly intact Medical Decision & Procedures ER Provider Diagnostic Interpretation: Radiology results as stated below per my review and radiologist interpretation: PELVIS 1 OR 2 VIEW ROUTINE CLINICAL HISTORY: Pelvic pain status post trauma COMPARISON STUDY: No previous studies for comparison. FINDINGS: No fractures or dislocations are visualized. IMPRESSION: No fractures or dislocations identified. Electronically signed by: Curt Mahan M.D. 11/01/2016 11:04 AM Dictated Date/Time: 11/01/2016 11:[address] LUMBAR SPINE WITHOUT CT DOSE: 1714.77 mGy.cm CLINICAL HISTORY: Trauma. Low back pain. TECHNIQUE: Helical images were acquired in transverse plane. Reformatted sagittal and coronal images were reviewed. CONTRAST: No contrast was administered COMPARISON STUDY: None. FINDINGS: L1-2 level: There is a minor circumferential disc bulge. There is minimal spinal stenosis. There is no significant foraminal narrowing L2-3 level: There is a mild circumferential disc bulge. There is mild spinal stenosis. There is no significant foraminal narrowing L3-4 level: There is a minor circumferential disc bulge. There is moderate spinal stenosis. There is no significant foraminal narrowing L4-5 level: There is a circumferential disc bulge. There is mild to moderate spinal stenosis. There is no significant foraminal narrowing L5-S1 level: There is no evidence of significant disc bulge or focal herniation. There is no evidence of spinal or foraminal stenosis. IMPRESSION: 1. No acute fractures or traumatic subluxations identified 2. Multilevel spondylitic changes with multilevel spinal stenosis most severe at the L3-4 level. Electronically signed by: Curt Mahan M.D. 11/01/2016 11:32 AM Dictated Date/Time: 11/01/2016 11:[address] HEAD WITHOUT CONTRAST (CT) CLINICAL HISTORY: Multiple falls. Head pain. Head trauma. COMPARISON STUDY: 05/03/2015 TECHNIQUE: Axial CT of the brain is performed from the vertex to the skull base. IV contrast was not administered for this examination. CT DOSE: FINDINGS: No intra or extra-axial mass lesions are visualized. There is no CT evidence of acute cortical infarction. There is no evidence of midline shift. There is no acute hemorrhage. No calvarial fractures are visualized. There are patchy white matter hypodensities likely on a small vessel basis. There is no evidence of pathologic ventricular dilatation. There is no evidence of acute sinusitis. There is mild left maxilla sinus mucosal thickening. IMPRESSION: No acute intracranial findings Electronically signed by: Curt Mahan M.D. 11/01/2016 11:24 AM Dictated Date/Time: 11/01/2016 11:24 AM CHEST ONE VIEW PORTABLE CLINICAL HISTORY: Multiple falls. Trauma. COMPARISON STUDY: 07/06/2016 FINDINGS: The heart is enlarged. There is been resolution improvement in the previous identified left basilar atelectasis. There is been resolution of the right apical and right lower lung zone airspace opacities. There is minor right basilar atelectasis. There is no failure. IMPRESSION: Mild cardiomegaly. Mild basilar atelectasis. No evidence of failure. No evidence of pneumothorax. Electronically signed by: Curt Mahan M.D. 11/01/2016 11:02 AM Dictated Date/Time: 11/01/2016 11:[address] OF THE CERVICAL SPINE CLINICAL HISTORY: Neck pain status post trauma COMPARISON STUDY: No previous studies for comparison. CT DOSE: TECHNIQUE: CT scan of the cervical spine was performed from the skull base to the thoracic inlet. Images are reviewed in the axial, sagittal, and coronal planes. IV contrast was not administered for this examination. FINDINGS: The visualized portions of the lung apices reveal no evidence of pneumothorax. The prevertebral soft tissues are normal. No fractures or traumatic subluxations are visualized. There are multilevel degenerative changes most pronounced at the C 4-5 level. Minimal retrolisthesis of C3 3 on C4 is felt to be arthritic. There is a prominent posterior disc osteophyte complex at the C6-7 level. IMPRESSION: No evidence of acute fracture or traumatic subluxation. Electronically signed by: Curt Mahan M.D. 11/01/2016 11:30 AM Dictated Date/Time: 11/01/2016 11:[address] FACIAL BONES-MXILLOFAC WITHOUT CT DOSE: CLINICAL HISTORY: Facial pain status post trauma. Right eye swelling. COMPARISON STUDY: No previous studies for comparison. TECHNIQUE: Helical images were acquired in the transverse plane. The study was reviewed and analyzed on the independent 3-D workstation. The pterygoid plates appear intact. The zygomatic arches appear intact. The globes appear intact. There is no evidence of orbital emphysema. The orbital storey and floor appear intact. The mandibular condyles appear intact. There is mild right-sided periorbital edema. There is a left maxillary and mandibular molar dental apical abscesses IMPRESSION: 1. Mild right-sided periorbital edema 2. No facial fractures identified. 3. Incidentally identified dental apical abscesses Electronically signed by: Curt Mahan M.D. 11/01/2016 11:28 AM Dictated Date/Time: 11/01/2016 11:25 AM Laboratory Results 11/01/16 10:40 Red Blood Count 4.48, Mean Corpuscular Volume 94.2, Mean Corpuscular Hemoglobin 30.8, Mean Corpuscular Hemoglobin Concent 32.7, Mean Platelet Volume 9.8, Neutrophils (%) (Auto) 75.9, Lymphocytes (%) (Auto) 14.7, Monocytes (%) (Auto) 8.5, Eosinophils (%) (Auto) 0.4, Basophils (%) (Auto) 0.2, Neutrophils # (Auto) 8.65, Lymphocytes # (Auto) 1.67, Monocytes # (Auto) 0.97, Eosinophils # (Auto) 0.04, Basophils # (Auto) 0.02 11/01/16 10:40 Test 11/01/16 10:39 11/01/16 10:40 Bedside Glucose 85 mg/dl (70-90) White Blood Count 11.38 K/uL (4.8-10.8) Red Blood Count 4.48 M/uL (4.2-5.4) Hemoglobin 13.8 g/dL (12.0-16.0) Hematocrit 42.2 % (37-47) Mean Corpuscular Volume 94.2 fL (80-100) Mean Corpuscular Hemoglobin 30.8 pg (25-34) Mean Corpuscular Hemoglobin Concent 32.7 g/dl (32-36) Platelet Count 191 K/uL (130-400) Mean Platelet Volume 9.8 fL (7.4-10.4) Neutrophils (%) (Auto) 75.9 % Lymphocytes (%) (Auto) 14.7 % Monocytes (%) (Auto) 8.5 % Eosinophils (%) (Auto) 0.4 % Basophils (%) (Auto) 0.2 % Neutrophils # (Auto) 8.65 K/uL (1.4-6.5) Lymphocytes # (Auto) 1.67 K/uL (1.2-3.4) Monocytes # (Auto) 0.97 K/uL (0.11-0.59) Eosinophils # (Auto) 0.04 K/uL (0-0.5) Basophils # (Auto) 0.02 K/uL (0-0.2) RDW Standard Deviation 66.5 fL (36.4-46.3) RDW Coefficient of Variation 19.1 % (11.5-14.5) Immature Granulocyte % (Auto) 0.3 % Immature Granulocyte # (Auto) 0.03 K/uL (0.00-0.02) Anion Gap 6.0 mmol/L (3-11) Est Creatinine Clear Calc Drug Dose 71.4 ml/min Estimated GFR () 108.0 Estimated GFR (Non- 93.2 BUN/Creatinine Ratio 16.0 (10-20) Calcium Level 9.2 mg/dl (8.5-10.1) Total Bilirubin 0.2 mg/dl (0.2-1) Direct Bilirubin < 0.1 mg/dl (0-0.2) Aspartate Amino Transf (AST/SGOT) 19 U/L (15-37) Alanine Aminotransferase (ALT/SGPT) 24 U/L (12-78) Alkaline Phosphatase 73 U/L (45-117) Total Protein 7.3 gm/dl (6.4-8.2) Albumin 4.0 gm/dl (3.4-5.0) Labs reviewed by ED physician. Medications Administered Medications (Trade) Dose Ordered Sig/Kaycee Route Start Time Stop Time Status Last Admin Dose Admin Sodium Chloride (Nss 1000ml) 1,000 ml @ 999 mls/hr Q1H1M STAT IV 11/01/16 10:25 11/01/16 11:25 DC 11/01/16 10:47 999 MLS/HR Morphine Sulfate (MoRPHine SULFATE INJ) 4 mg NOW STAT IV 11/01/16 10:25 11/01/16 10:28 DC 11/01/16 10:48 4 MG Ondansetron HCl (Zofran Inj) 4 mg NOW STAT IV 11/01/16 10:25 11/01/16 10:28 DC 11/01/16 10:48 4 MG Morphine Sulfate (MoRPHine SULFATE INJ) 4 mg NOW STAT IV 11/01/16 12:04 11/01/16 12:07 DC 11/01/16 12:15 4 MG Metoclopramide HCl (Reglan Inj) 10 mg NOW STAT IV 11/01/16 12:04 11/01/16 12:07 DC 11/01/16 12:15 10 MG ED Course 1010: Past medical records reviewed. The patient was evaluated in room A12. A complete history and physical examination was performed. 1025: Ordered Zofran Inj 4 mg IV, Morphine Sulfate 4 mg IV, Sodium Chloride 1000 ml @ 999 mls/hr IV 1204: Ordered Reglan Inj 10 mg IV, Morphine Sulfate 4 mg IV 1226: Upon reexamination the patient is resting. I discussed results and treatment plan with the patient. She verbalizes agreement and understanding. The patient is ready for discharge. Medical Decision Differential diagnosis: Etiologies such as fracture, dislocation, intra-abdominal, pneumothorax, intrathoracic , intracranial, neurologic, as well as other traumatic pathologies were entertained. This is a 66-year-old female who presents emergency department complaining of multiple falls that occurred yesterday. The patient reports she lost her balance twice. The patient reports she has not been feeling weak and has been walking normally. She has a normal chest and pelvis x-ray. He Cozen the multiple complaints she was sent for CAT scan of her L-spine and C-spine and her head. This did not show any acute process. The patient also did not break any bones around her right eye which is swollen. She was given normal saline bolus and given morphine. She'll be given Percocet for the pain and encouraged to follow-up with orthopedics. Patient was in agreement with the treatment plan. Impression Primary Impression: Fall Additional Impression: Contusion of multiple sites Scribe Attestation The scribe's documentation has been prepared under my direction and personally reviewed by me in its entirety. I confirm that the note above accurately reflects all work, treatment, procedures, and medical decision making performed by me. Departure Information Dispostion Home / Self-Care Prescriptions Oxycodone/Acetaminophen 5MG/325MG (PERCOCET 5MG/325MG) Tab 1-2 TAB PO Q4H Y for Pain, #14 TAB Prov: Dougie Penaloza MD 11/01/16 Referrals Destin Villasenor M.D. (PCP) Forms HOME CARE DOCUMENTATION FORM, IMPORTANT VISIT INFORMATION, School Instructions, Work Instructions Patient Instructions ED Back Care Tips, ED Contusion Back, ED Fall Dizziness Weakn Balance, My [facility] Additional Instructions Follow up with DR Araiza's office for continued back pain You received narcotic or benzodiazepene medication while in the emergency room today. Do not drive, operate heavy machinery, or drink alcohol under the influence of this medication. Take 600 mg Ibuprofen every 6 hours Take Percocet for breakthrough pain You have been examined and treated today on an emergency basis only. This is not a substitute for, or an effort to provide, complete comprehensive medical care. It is impossible to recognize and treat all injuries or illnesses in a single emergency department visit. It is therefore important that you follow up closely with Dr Villasenor. Call as soon as possible for an appointment. Thank you for your time and consideration. I look forward to speaking with you again soon. Please don't hesitate to call us if you have any questions. Problem Qualifiers Primary Impression: Fall Encounter type: initial encounter Qualified Codes: W19.XXXA - Unspecified fall, initial encounter
[2016-11-01 10:43] VITALS: O2SAT 95
[2016-11-01 10:58] LABS: BASO % 0.2 %; BASO ABS # 0.02 K/uL (0-0.2); COMPLETE YES; EOS % 0.4 %; HEMATOCRIT 42.2 % (37-47); IG% 0.3 %; LYMPH % 14.7 %; LYMPH ABS # 1.67 K/uL (1.2-3.4); MEAN CELL VOLUME 94.2 fL (80-100); MEAN CORPUSCULAR HEMOGLOBIN 30.8 pg (25-34); MEAN CORPUSCULAR HGB CONC 32.7 g/dl (32-36); MEAN PLATELET VOLUME 9.8 fL (7.4-10.4); MONO % 8.5 %; NEUT % 75.9 %; PLATELET COUNT 191 K/uL (130-400); RED BLOOD COUNT 4.48 M/uL (4.2-5.4); WHITE BLOOD COUNT 11.38 K/uL (4.8-10.8)
--- NOTE | 2016-11-01 11:04 | DIAGNOSTIC IMAGING REPORT ---
CHEST ONE VIEW PORTABLE CLINICAL HISTORY: Multiple falls. Trauma. COMPARISON STUDY: 07/06/2016 FINDINGS: The heart is enlarged. There is been resolution improvement in the previous identified left basilar atelectasis. There is been resolution of the right apical and right lower lung zone airspace opacities. There is minor right basilar atelectasis. There is no failure. IMPRESSION: Mild cardiomegaly. Mild basilar atelectasis. No evidence of failure. No evidence of pneumothorax. Electronically signed by: Curt Mahan M.D. 11/01/2016 11:02 AM Dictated Date/Time: 11/01/2016 11:01 AM
--- NOTE | 2016-11-01 11:05 | DIAGNOSTIC IMAGING REPORT ---
PELVIS 1 OR 2 VIEW ROUTINE CLINICAL HISTORY: Pelvic pain status post trauma COMPARISON STUDY: No previous studies for comparison. FINDINGS: No fractures or dislocations are visualized. IMPRESSION: No fractures or dislocations identified. Electronically signed by: Curt Mahan M.D. 11/01/2016 11:04 AM Dictated Date/Time: 11/01/2016 11:03 AM
--- NOTE | 2016-11-01 11:26 | DIAGNOSTIC IMAGING REPORT ---
CT HEAD WITHOUT CONTRAST (CT) CLINICAL HISTORY: Multiple falls. Head pain. Head trauma. COMPARISON STUDY: 05/03/2015 TECHNIQUE: Axial CT of the brain is performed from the vertex to the skull base. IV contrast was not administered for this examination. CT DOSE: FINDINGS: No intra or extra-axial mass lesions are visualized. There is no CT evidence of acute cortical infarction. There is no evidence of midline shift. There is no acute hemorrhage. No calvarial fractures are visualized. There are patchy white matter hypodensities likely on a small vessel basis. There is no evidence of pathologic ventricular dilatation. There is no evidence of acute sinusitis. There is mild left maxilla sinus mucosal thickening. IMPRESSION: No acute intracranial findings Electronically signed by: Curt Mahan M.D. 11/01/2016 11:24 AM Dictated Date/Time: 11/01/2016 11:24 AM
--- NOTE | 2016-11-01 11:29 | DIAGNOSTIC IMAGING REPORT ---
CT FACIAL BONES-MXILLOFAC WITHOUT CT DOSE: CLINICAL HISTORY: Facial pain status post trauma. Right eye swelling. COMPARISON STUDY: No previous studies for comparison. TECHNIQUE: Helical images were acquired in the transverse plane. The study was reviewed and analyzed on the independent 3-D workstation. The pterygoid plates appear intact. The zygomatic arches appear intact. The globes appear intact. There is no evidence of orbital emphysema. The orbital storey and floor appear intact. The mandibular condyles appear intact. There is mild right-sided periorbital edema. There is a left maxillary and mandibular molar dental apical abscesses IMPRESSION: 1. Mild right-sided periorbital edema 2. No facial fractures identified. 3. Incidentally identified dental apical abscesses Electronically signed by: Curt Mahan M.D. 11/01/2016 11:28 AM Dictated Date/Time: 11/01/2016 11:25 AM
--- NOTE | 2016-11-01 11:32 | DIAGNOSTIC IMAGING REPORT ---
CT OF THE CERVICAL SPINE CLINICAL HISTORY: Neck pain status post trauma COMPARISON STUDY: No previous studies for comparison. CT DOSE: TECHNIQUE: CT scan of the cervical spine was performed from the skull base to the thoracic inlet. Images are reviewed in the axial, sagittal, and coronal planes. IV contrast was not administered for this examination. FINDINGS: The visualized portions of the lung apices reveal no evidence of pneumothorax. The prevertebral soft tissues are normal. No fractures or traumatic subluxations are visualized. There are multilevel degenerative changes most pronounced at the C 4-5 level. Minimal retrolisthesis of C3 3 on C4 is felt to be arthritic. There is a prominent posterior disc osteophyte complex at the C6-7 level. IMPRESSION: No evidence of acute fracture or traumatic subluxation. Electronically signed by: Curt Mahan M.D. 11/01/2016 11:30 AM Dictated Date/Time: 11/01/2016 11:28 AM
--- NOTE | 2016-11-01 11:34 | DIAGNOSTIC IMAGING REPORT ---
CT LUMBAR SPINE WITHOUT CT DOSE: 1714.77 mGy.cm CLINICAL HISTORY: Trauma. Low back pain. TECHNIQUE: Helical images were acquired in transverse plane. Reformatted sagittal and coronal images were reviewed. CONTRAST: No contrast was administered COMPARISON STUDY: None. FINDINGS: L1-2 level: There is a minor circumferential disc bulge. There is minimal spinal stenosis. There is no significant foraminal narrowing L2-3 level: There is a mild circumferential disc bulge. There is mild spinal stenosis. There is no significant foraminal narrowing L3-4 level: There is a minor circumferential disc bulge. There is moderate spinal stenosis. There is no significant foraminal narrowing L4-5 level: There is a circumferential disc bulge. There is mild to moderate spinal stenosis. There is no significant foraminal narrowing L5-S1 level: There is no evidence of significant disc bulge or focal herniation. There is no evidence of spinal or foraminal stenosis. IMPRESSION: 1. No acute fractures or traumatic subluxations identified 2. Multilevel spondylitic changes with multilevel spinal stenosis most severe at the L3-4 level. Electronically signed by: Curt Mahan M.D. 11/01/2016 11:32 AM Dictated Date/Time: 11/01/2016 11:31 AM
[2016-11-01 11:36] LABS: ALT/SGPT 24 U/L (12-78); AST/SGOT 19 U/L (15-37); BLOOD UREA NITROGEN 10 mg/dl (7-18); CALCIUM 9.2 mg/dl (8.5-10.1); CARBON DIOXIDE 32 mmol/L (21-32); CHLORIDE 107 mmol/L (98-107); CREATININE 0.65 mg/dl (0.60-1.20); GLUCOSE 83 mg/dl (70-99); POTASSIUM 4.5 mmol/L (3.5-5.1); SODIUM 145 mmol/L (136-145)
[2016-11-01 11:38] LABS: ALKALINE PHOSPHATASE 73 U/L (45-117)
[2016-11-01] MEDS ORDERED: METOCLOPRAMIDE HCL INJ 5 MG/ML 2 ML VIAL IV STA (12:04)
[2016-11-01] MEDS ORDERED: OXYC-57 PO (12:08)
[2016-11-01 12:18] VITALS: BP 105/65; PULSE 71; O2SAT 92
== END 2016-11-01 12:34 | disposition home or self-care (01) ==
LOC: C.EDB 10:02 → C.EDA 12:34
DX: T14.8 Other injury of unspecified body region (principal); W10.9XXA Fall (on) (from) unspecified stairs and steps, initial encounter; J44.9 Chronic obstructive pulmonary disease, unspecified; F32.9 Major depressive disorder, single episode, unspecified; E78.5 Hyperlipidemia, unspecified; M19.90 Unspecified osteoarthritis, unspecified site; I10 Essential (primary) hypertension; E03.9 Hypothyroidism, unspecified; G47.33 Obstructive sleep apnea (adult) (pediatric); F17.210 Nicotine dependence, cigarettes, uncomplicated; Z95.1 Presence of aortocoronary bypass graft; Z68.24 Body mass index [BMI] 24.0-24.9, adult; E66.9 Obesity, unspecified; Z90.3 Acquired absence of stomach [part of]; Z98.51 Tubal ligation status; Z83.3 Family history of diabetes mellitus; Z82.49 Family history of ischemic heart disease and other diseases of the circulatory system; Z79.899 Other long term (current) drug therapy

== ENCOUNTER → 2017-11-16 | Day surgery (SDC) | payer OTHER ==
[2017-11-11 11:33] VITALS: Ht 152.4 cm; Wt 63.6 kg
[~2017-11-16] VITALS: Ht 152.4 cm; Wt 63.6 kg
[~2017-11-16] MED LIST changes: +ADVIN25/60 INH; -ADVIN25050 INH; +ALBINS/ NEB; +ALBU18002 INH; -ALBU1NEB10 INH; +CYAN1SUB13 SC; -FERR325T51 PO; +IMT100 PO; -LEVO125T5 PO; +LEVO175T PO; +LIDOCAINE HCL 2% 2 ML VIAL (20MG/ML) ONE; -LISI5TAB3 PO; +LSN5 PO; -MULT-506 PO; +OXGN; +PEDI1CHW82 PO; -PRED10TA PO; +PROPOFOL IV EMULSION 10 MG/ML 20 ML VIAL ONE; +SODIUM CHLORIDE 0.9% 500ML 500 ML IV ONE
--- NOTE | 2017-11-16 10:43 | Endo History and Physical ---
History & Physical Date of Service: November 16, 2017. Chief Complaint: Hx polyps Referring Physician: Destin Villasenor History of Present Illness 67 yo presenting for evaluation for surveillance of colonic polyps Past Medical History Arthritis, Asthma, Reflux, Blood Dyscrasias, High Cholesterol, Sleep Apnea, Hypertension, COPD, Thyroid Disease, Depression Past Surgical History Hx Cardiac Surgery: No Hx Internal Defibrillator: No Hx Pacemaker: No Hx Abdominal Surgery: Yes (2 gastric bypass, tubal, ) Hx of Implantable Prosthesis: No Hx Post-Op Nausea and Vomiting: No Hx Cancer Surgery: No Hx Thoracic Surgery: No Hx Orthopedic: Yes (fatty tissue removed from L arm, lump removed from R ankle) Hx Urinary Tract Surgery: No Social History Smoking Status: Current Every Day Smoker Hx Substance Use: Yes (TRAMADOL PRN) Hx Alcohol Use: Yes (RARELY) Allergies Coded Allergies: Cephalexin (Verified Allergy, Intermediate, ITCHY, 11/11/17) Current Medications Reported Home Medications Medications Dose Route/Sig Max Daily Dose Days Date Category Dose Instructions B-12 (Cyanocobalamin) 1,000 Mcg Sub 1 Ml SC Q3MO 11/11/17 Reported Oxygen Gas 2 Liters NA HS 11/11/17 Reported Synthroid (Levothyroxine Sodium) 175 Mcg Tab 1 Tab PO DAILY 30 11/11/17 Reported Proventil 0.083% 2.5MG/3ML (Albuterol Sulf) 2.5 Mg/3 Ml Nebu 1 Vial NEB Q4 PRN 11/01/16 Reported Proair Respiclick (Albuterol Sulfate) 108 Mcg/Act Aer 2 Puff INH Q4 PRN 11/01/16 Reported Imitrex (Sumatriptan Succinate) 100 Mg Tab 100 Mg PO UD 11/01/16 Reported Montelukast Sodium (Montelukast Sod) 10 Mg Tab 10 Mg PO DAILY 11/01/16 Reported Advair Diskus 250/50 60 Dose (Fluticasone Prop/Salmeterol) 1 Ea Aerp 1 Puff INH BID 11/01/16 Reported Lisinopril 5 Mg Tab 5 Mg PO DAILY 11/01/16 Reported Flintstones Gummies Compl (Pediatric Multiple Vitamin W/) 1 Chw Chw 1 Tab PO BID 11/01/16 Reported Calcium Citrate + D3 200-250 mg-Unit (Calcium Citrate-Vitamin D) 1 Tab Tab 1 Tab PO BID 1/2/17 Reported Miralax (Polyethylene Glycol 3350) 1 Pow Pow 17 Gm PO DAILY PRN 06/29/16 Reported Vitamin D3 (Cholecalciferol) 1,000 Unit Tab 1,000 Units PO DAILY 06/29/16 Reported Ultram (Tramadol HCl) 50 Mg Tab 50 Mg PO Q6H PRN 06/29/16 Reported Flexeril (Cyclobenzaprine Hcl) 5 Mg Tab 5 Mg PO TID PRN 06/29/16 Reported PRN Incruse Ellipta (Umeclidinium [place]) 62.5 Mcg/Inh Inh 1 Puff INH DAILY 06/29/16 Reported Zolpidem Tartrate 5 Mg Tab 10 Mg PO HS PRN 11/07/14 Reported Prilosec (Omeprazole) 20 Mg Capcr 20 Mg PO BIDM 10/20/10 Reported Adarsh-Dur Ext Rel (Theophylline) 300 Mg Tabcr 300 Mg PO BID 10/20/10 Reported Zocor (Simvastatin) 20 Mg Tab 20 Mg PO QPM 10/20/10 Reported Zoloft (Sertraline HCl) 100 Mg Tab 150 Mg PO QAM 11/17/09 Reported Vital Signs Weight (Kilograms): 63.64 Height (Feet): 5 Height (Inches): 0 Date Time Temp Pulse Resp B/P (MAP) Pulse Ox O2 Delivery O2 Flow Rate FiO2 11/16/17 10:28 36.9 77 18 105/69 (81) 94 Room Air Physical Exam General Appearance: WD/WN, no apparent distress Respiratory/Chest: Respiratory effort: no dyspnea Auscultation: breath sounds normal, CTA except as noted Cardiovascular: Apical Impulse: not displaced Heart Auscultation: RRR, normal S1, normal S2 Assessment and Plan 67 yo presenting for colon polyp follow up
--- NOTE | 2017-11-16 11:47 | GI REPORT ---
Patient Name: Jacqueline Dutton Procedure Date: 11/16/2017 10:50 AM Date of : 1950 Admit Type: Outpatient Age: 67 Gender: Female Attending MD: Sanjeev Lockwood MD Procedure: Colonoscopy Providers: Sanjeev Lockwood MD Referring MD: Destin Villasenor Indications: High risk colon cancer surveillance: Personal history of colonic polyps Medicines: Monitored Anesthesia Care Complications: No immediate complications. Estimated blood loss: None. Estimated Blood Loss: Estimated blood loss: none. Procedure: Pre-Anesthesia Assessment: - Pre-Anesthesia Assessment: - Prior to the procedure, a History and Physical was performed, and patient medications, allergies and sensitivities were reviewed. The patient's tolerance of previous anesthesia was reviewed. Please see [facility] for complete details. - The risks and benefits of the procedure and the sedation options and risks were discussed with the patient. All questions were answered and informed consent was obtained. - Patient identification and proposed procedure were verified prior to the procedure by the physician and the nurse. The procedure was verified in the pre-procedure area in the procedure room. After obtaining informed consent, the endoscope was passed carefully and meticuously under direct vision and only advanced when the lumen was clearly identified, C02 insuflation was utilized throughout the entirity of the procedure. Throughout the procedure, the patient's blood pressure, pulse, and oxygen saturations were monitored continuously. After I obtained informed consent, the scope was passed under direct vision. Throughout the procedure, the patient's blood pressure, pulse, and oxygen saturations were monitored continuously. The scope was introduced through the anus and advanced to the terminal ileum, with identification of the appendiceal orifice and IC valve. The colonoscopy was performed without difficulty. The patient tolerated the procedure well. The quality of the bowel preparation was poor. Findings: A 3 mm polyp was found in the cecum. The polyp was sessile. The polyp was removed with a jumbo cold forceps. Resection and retrieval were complete. Four sessile polyps were found in the ascending colon. The polyps were 3 to 6 mm in size. These polyps were removed with a cold snare. Resection and retrieval were complete. Three sessile polyps were found in the descending colon. The polyps were 3 to 4 mm in size. These polyps were removed with a cold snare. Resection and retrieval were complete. A 4 mm polyp was found in the sigmoid colon. The polyp was sessile. The polyp was removed with a cold snare. Resection and retrieval were complete. Multiple small-mouthed diverticula were found in the sigmoid colon. The terminal ileum appeared normal. Internal hemorrhoids were found during retroflexion. Impression: - Preparation of the colon was poor. - One 3 mm polyp in the cecum, removed with a jumbo cold forceps. Resected and retrieved. - Four 3 to 6 mm polyps in the ascending colon, removed with a cold snare. Resected and retrieved. - Three 3 to 4 mm polyps in the descending colon, removed with a cold snare. Resected and retrieved. - One 4 mm polyp in the sigmoid colon, removed with a cold snare. Resected and retrieved. - Diverticulosis in the sigmoid colon. - The examined portion of the ileum was normal. - Internal hemorrhoids. Recommendation: - Repeat colonoscopy in 6 months because the bowel preparation was poor. - Return to referring physician as previously scheduled. - Await pathology results. Sanjeev Lockwood MD 11/16/2017 11:46:41 AM This report has been signed electronically. Note Initiated On: 11/16/2017 10:50 AM Number of Addenda: 0 I attest to the content of the Intraoperative Record and orders documented therein, exceptions below {[id number]}
--- NOTE | 2017-11-16 11:49 | Anesthesiology Progress Note ---
Anesthesia Post Op Note Date & Time November 16, 2017 at 11:49 Vital Signs Pain Intensity: 0 Vital Signs Past 12 Hours Date Time Temp Pulse Resp B/P (MAP) Pulse Ox O2 Delivery O2 Flow Rate FiO2 11/16/17 11:35 75 16 103/68 (80) 97 Room Air 11/16/17 10:28 36.9 77 18 105/69 (81) 94 Room Air Notes Mental Status: alert / awake / arousable, participated in evaluation Pt Amnestic to Procedure: Yes Nausea / Vomiting: adequately controlled Pain: adequately controlled Airway Patency, RR, SpO2: stable & adequate BP & HR: stable & adequate Hydration State: stable & adequate Anesthetic Complications: no major complications apparent
[2017-11-16 12:00] VITALS: BP 124/72; PULSE 62; O2SAT 99
--- NOTE | 2017-11-16 12:18 | Discharge Instructions ---
Endoscopy Patient Instructions Date / Procedure(s) Performed November 16, 2017. Colonoscopy Allergy Information Coded Allergies: Cephalexin (Verified Allergy, Intermediate, ITCHY, 11/11/17) Discharge Date / Findings November 16, 2017. Findings: A 3 mm polyp was found in the cecum. The polyp was sessile. The polyp was removed with a jumbo cold forceps. Resection and retrieval were complete. Four sessile polyps were found in the ascending colon. The polyps were 3 to 6 mm in size. These polyps were removed with a cold snare. Resection and retrieval were complete. Three sessile polyps were found in the descending colon. The polyps were 3 to 4 mm in size. These polyps were removed with a cold snare. Resection and retrieval were complete. A 4 mm polyp was found in the sigmoid colon. The polyp was sessile. The polyp was removed with a cold snare. Resection and retrieval were complete. Multiple small-mouthed diverticula were found in the sigmoid colon. The terminal ileum appeared normal. Internal hemorrhoids were found during retroflexion. Impression: - Preparation of the colon was poor. - One 3 mm polyp in the cecum, removed with a jumbo cold forceps. Resected and retrieved. - Four 3 to 6 mm polyps in the ascending colon, removed with a cold snare. Resected and retrieved. - Three 3 to 4 mm polyps in the descending colon, removed with a cold snare. Resected and retrieved. - One 4 mm polyp in the sigmoid colon, removed with a cold snare. Resected and retrieved. - Diverticulosis in the sigmoid colon. - The examined portion of the ileum was normal. - Internal hemorrhoids. Recommendation: - Repeat colonoscopy in 6 months because the bowel preparation was poor. - Return to referring physician as previously scheduled. - Await pathology results. Provider Instructions Activity Restrictions - No exercising or heavy lifting for 24 hours. - Do not drink alcohol the day of the procedure. - Do not drive a car or operate machinery until the day after the procedure. - Do not make any important decisions or sign important papers in 24 hours after the procedure. Following Day: - Return to full activity which may include returning to work/school. Diet Start your diet with liquids and light foods (jello, soup, juice, toast). Then eat your usual diet if not nauseated. Treatment For Common After Affects For mild abdominal pain, bloating, or excessive gas: - Rest - Eat lightly - Lie on right side Follow-Up Information Follow-up with Destin Villasenor as scheduled Anesthesia Information What You Should Know You have had a procedure that required some medicine to reduce anxiety and discomfort. This treatment is called moderate sedation. After receiving the treatment, you may be sleepy, but you will be able to breathe on your own. The effects of the treatment may last for several hours. Follow these instructions along with Activity/Diet recommendations noted above: * Do NOT do anything where dizziness or clumsiness would be dangerous. * Rest quietly at home today, then you can be up and about tomorrow. * Have a responsible person stay with you the rest of today. * You may have had an I.V. today. If so, you may take the dressing off later today. Recommendations Call your doctor if: * Trouble breathing * Continuous vomiting for more than 24 hours * Temperature above 101 degrees * Severe abdominal pain or bloating * Pain not relieved by pain medicine ordered * There is increased drainage or redness from any incision * A large amount of rectal bleeding greater than 2-3 tablespoons. (If you had a polyp/s removed or have hemorrhoids, a small amount of blood - from the rectum is to be expected.) * You have any unanswered questions or concerns. IN THE EVENT OF A SERIOUS EMERGENCY, GO TO THE NEAREST EMERGENCY ROOM Your discharge instructions were prepared by provider Sanjeev Lockwood. Patient Instructions Signature Page Jacqueline Dutton Patient (or Guardian) Signature/Date: I have read and understand the instructions given to me by my caregivers. Caregiver/RN/Doctor Signature/Date: The above-named patient and/or guardian has received patient instructions on this date. + Original Patient Signature Page (only) stays with chart. Please make copy for patient.
== END | disposition home or self-care (01) ==
LOC: C.GI 09:53
PROVIDERS: ATTEND Internal Medicine
DX: Z12.11 Encounter for screening for malignant neoplasm of colon (principal); D12.0 Benign neoplasm of cecum; D12.2 Benign neoplasm of ascending colon; D12.4 Benign neoplasm of descending colon; D12.5 Benign neoplasm of sigmoid colon; K57.30 Diverticulosis of large intestine without perforation or abscess without bleeding; K64.8 Other hemorrhoids; M19.90 Unspecified osteoarthritis, unspecified site; K21.9 Gastro-esophageal reflux disease without esophagitis; E78.5 Hyperlipidemia, unspecified; G47.30 Sleep apnea, unspecified; I10 Essential (primary) hypertension; J44.9 Chronic obstructive pulmonary disease, unspecified; F17.200 Nicotine dependence, unspecified, uncomplicated; F32.9 Major depressive disorder, single episode, unspecified; Z86.010 Personal history of colon polyps; Z98.84 Bariatric surgery status; Z88.1 Allergy status to other antibiotic agents